=== PATIENT | female | born 2000 | race Caucasian/White ===

== ENCOUNTER 2022-02-07 18:08 | Outpatient (REF) | payer MEDICAID, SELFPAY ==
[2022-02-08 15:35] LABS: Chlamydia Result Negative (Negative); GC Result Negative (Negative)
== END 2022-02-07 18:09 | disposition home or self-care (01) ==
LOC: LBN 18:08
PROVIDERS: Visit Provider Nurse Practitioner Women's Health
DX: Z32.01 Encounter for pregnancy test, result positive (principal)
CPT/HCPCS: 87491; 87591

== ENCOUNTER 2022-03-14 16:06 | Outpatient (REF) | payer MEDICAID, SELFPAY ==
--- NOTE | 2022-03-14 14:00 | PAPFT_PTH ---
PATIENT: Luis Redd LOC: [facility] U#:[id number] AGE/SX: 22/F ROOM: RE03/14/[address]: Elsy Islas CNM : 2000 BED: DIS: 03/14/2022 SPEC #: [id number] RECD: 03/14/22 17:47 STATUS: CUONG RELita #: [id number] AFTAB: 03/14/22 14:[address]: Elsy Islas DEPT: [facility] Cytology RECD BY: Lissette Pascual Tissues: 1 - CX/ENDOCX FOR PAP SMEARS Procedures: PAP THIN PREP/UVM Screening Comments: [id number] (CHLAMYDIA/GC)
[2022-03-14 17:39] LABS: *AMPHETAMINES SCREEN URINE Negative (Negative); *BARBITURATES SCREEN URINE Negative (Negative); *BENZODIAZEPINES SCREEN URINE Negative (Negative); Cannabinoids THC Negative (Negative); Cocaine Screen,Urine Negative (Negative); METHADONE URINE SCREEN Negative (Negative); OPIATES URINE SCREEN Negative (Negative); Tricyclic Antidepressants Negative (Negative)
[2022-03-15 14:24] LABS: Chlamydia Result Negative (Negative); GC Result Negative (Negative)
[2022-03-19 14:06] LABS: Buprenorphine Negative ng/mL (Cutoff: 5.0); Norbuprenorphine Negative ng/mL (Cutoff: 2.5)
== END 2022-03-14 16:07 | disposition home or self-care (01) ==
LOC: LBN 16:06
PROVIDERS: Visit Provider Advanced Practice Midwife
DX: Z34.91 Encounter for supervision of normal pregnancy, unspecified, first trimester (principal); Z11.3 Encounter for screening for infections with a predominantly sexual mode of transmission; Z3A.11 11 weeks gestation of pregnancy; Z12.4 Encounter for screening for malignant neoplasm of cervix
CPT/HCPCS: 80307; 80348; 87491; 87591; 88142; 87480; 87510; 87660

== ENCOUNTER 2022-03-24 02:12 | Outpatient (CLI) | payer MEDICAID, SELFPAY ==
[2022-03-24 16:55] LABS: Abs Immature Grans 0.04 10^3/uL (0.0-0.06); Absolute Basophil Count 0.04 10^3/uL (0.0-0.2); Absolute Eosinophil Count 0.11 10^3/uL (0.0-0.7); Absolute Lymphocyte Count 1.71 10^3/uL (1.2-3.4); Absolute Monocyte Count 0.55 10^3/uL (0.1-0.8); Absolute Neutrophil Count 7.81 10^3/uL (1.2-6.7); Basophils % 0.4; Eosinophils % 1.1; HCT 36.2 % (36.0-46.0); HGB 12.7 g/dL (11.2-15.7); Immature Grans % 0.4; Lymphocytes % 16.7; MCH 29.5 pg (27.0-33.0); MCHC 35.1 % (32.0-36.0); MCV 84 fL (80-95); Monocytes % 5.4; Platelet Count 322 10^3/uL (130-400); RDW 12.5 % (11.7-14.6); RDW-SD 37.6 fL; WBC 10.26 10^3/uL (4.4-10.8)
[2022-03-26 14:03] LABS: HIV-1/2 Ag & Ab Screen Negative (Negative)
[2022-03-28 09:58] LABS: Hepatitis B Surface Ag Negative (Negative)
[2022-03-28 10:07] LABS: Hepatitis C Ab w Rflx HCV PCR Negative (Negative)
[2022-03-28 11:01] LABS: Varicella IgG Antibody Positive (See Note)
[2022-03-28 11:13] LABS: Rubella IgG Ab (UVM) Positive (See Note)
[2022-03-30 14:37] LABS: Syphilis IgG w/Reflex Nonreactive (Nonreactive)
== END 2022-03-24 02:13 | disposition home or self-care (01) ==
LOC: LBO 02:12
PROVIDERS: Visit Provider Advanced Practice Midwife
DX: Z34.91 Encounter for supervision of normal pregnancy, unspecified, first trimester
CPT/HCPCS: 36415; 86787; 86803; 86850; 86900; 86901; 87340; 87389; 85025; 86762; 86780; 87086

== ENCOUNTER 2022-04-28 02:08 | Outpatient (CLI) | payer MEDICAID, SELFPAY ==
--- NOTE | 2022-04-28 07:30 | DI.US_ITS ---
Exam(s) US OB 2-3 TRIMESTER W MOD EXAM: US OB 2-3 TRIMESTER W MOD CLINICAL HISTORY: 18 wk anatomy survey,z34.90. TECHNIQUE: Transabdominal obstetrical ultrasound performed. COMPARISON: US POCUS EXAM from 02/10/2022 FINDINGS: Number of fetuses: One. position: Vertex. Placental grade: 1 Placental location: Anterior no evidence of previa. BIOMETRIC DATA: BPD: 43mm = 19+ 0 weeks HC: 154mm = 18+ 2 weeks AC: 130mm = 18+ 4 weeks FL: 28mm = 18+ 5 weeks Cisterna Magna: 2 mm Cerebellum: 1.7 cm EFW: 249 grms 74% Composite Age: 18.5 weeks EDC by US: 24 September 2022 Heart Rate: 150BPM Amniotic fluid : Amount of fluid is within normal limits. ANATOMICAL SURVEY: Four-chambered heart: Unremarkable. LVOT: Unremarkable. RVOT: Unremarkable. Left-sided stomach: Unremarkable. urinary bladder: Unremarkable. Bilateral kidneys: Unremarkable. Three-vessel cord: Unremarkable. Cord insertion: Unremarkable. Posterior fossa:Unremarkable. ventricles: Unremarkable. nose: Not well seen lips: Suboptimally visualized. palate: Suboptimally visualized. spine: Unremarkable. Two arms and two legs: Unremarkable. IMPRESSION: 1. size and weight are within the expected range. 2. Normal anatomic survey. nose lips and palate suboptimally visualized. The patient is scheduled to return 09 May 2022 for further imaging. DATA REPOSITORY:
== END 2022-04-28 02:28 ==
LOC: DI 02:08
PROVIDERS: Visit Provider Advanced Practice Midwife
DX: Z34.92 Encounter for supervision of normal pregnancy, unspecified, second trimester (principal)
CPT/HCPCS: 76805

== ENCOUNTER 2022-05-09 00:20 | Outpatient (CLI) | payer MEDICAID, SELFPAY ==
--- NOTE | 2022-05-09 07:00 | DI.US_ITS ---
Exam(s) US OB F/U FACIAL/LVOT/RVOT EXAM: US OB F/U FACIAL/LVOT/RVOT CLINICAL HISTORY: F/U NOSE, LIPS, PALATE. COMPARISON: No exams were available for comparison TECHNIQUE: Transabdominal obstetrical ultrasound performed. FINDINGS: Sonographic images demonstrate a single intrauterine gestation in variable position. heart rate motion is Dopplered at: 144 bpm. nose/lips and palate: Unremarkable. Placenta: Anterior. IMPRESSION: face well visualized on today's exam. No abnormalities identified. DATA REPOSITORY:
== END 2022-05-09 00:40 ==
LOC: DI 00:20
PROVIDERS: Visit Provider Advanced Practice Midwife
DX: Z34.92 Encounter for supervision of normal pregnancy, unspecified, second trimester (principal)
CPT/HCPCS: 76815

== ENCOUNTER 2022-06-03 00:09 | Outpatient (CLI) | payer MEDICAID, SELFPAY ==
--- NOTE | 2022-06-03 13:35 | DI.US_ITS ---
APPROVED REPORT EXAM: Comprehensive 2D, Doppler, and color-flow Echocardiogram Patient Location: Out-Patient Locomotive Firer: Aria Hawkins RDCS (AE) Indications: Family h/o Murmur, Murmur 23 Week Other Information Study Quality: Adequate Conclusion Normal left ventricular wall thickness and chamber size. Estimated ejection fraction is 60 to 65%. Wall motion is normal Normal right ventricular size and systolic function Both atria are normal in size There is no structural or hemodynamically significant valvular disease Estimated right ventricular systolic pressure is 16 mmHg Wall motion Left Ventricle The left ventricle is normal size. The left ventricular systolic function is normal. The left ventric ular ejection fraction is within the normal range. There is normal left ventricular wall thickness. T here is normal LV segmental wall motion. There is no ventricular septal defect visualized. LVEF is 60 -65%. Right Ventricle Right ventricle is grossly normal in size. Right ventricular systolic function is grossly normal. Th e RVSP is 15.7 mmHg. Atria The left atrium size is normal. The right atrium size is normal. The interatrial septum is intact wit h no evidence for an atrial septal defect. Aortic Valve The aortic valve is normal in structure. Aortic valve is trileaflet. There is no aortic valvular sten osis. No aortic regurgitation is present. Mitral Valve The mitral valve is normal in structure. No evidence of mitral valve stenosis. Trace mitral regurgita tion. Tricuspid Valve The tricuspid valve is normal in structure. There is no tricuspid valve stenosis. Trace to mild tricu spid regurgitation. Pulmonic Valve The pulmonary valve is normal in structure. There is no pulmonic valvular stenosis. There is no pulmo joseph valvular regurgitation. Great Vessels The aortic root is normal in size. The ascending aorta is normal in size. Aortic arch is normal in ca liber. IVC is normal in size and collapses >50% with inspiration. Pericardium There is no pericardial effusion. 2D Dimensions IVSD d PLAX 0.61 cm F: 0.6-1.0 LV Vol A2C d MOD 67.0 mL LVPW d PLAX 0.68 cm F: 0.6 - 1.0 LV Vol A4C d MOD 91.0 mL LVID d PLAX 4.68 cm F: 3.8 - 5.2 LA vol/ BSA A2C s A-L 16.5 mL/m2 LVDs 3.00 cm F: 2.2 - 3.5 LA vol/ BSA A4C s A-L 24.6 mL/m2 Ao Root d 2.39 cm F: 2.7 - 3.3 LA Vol/ BSA Biplane s A-L 22.1 mL/m2 RA Area A4C 11.28 cm2 LA Area A4C s MOD 16.11 cm2 RA Vol/ BSA A4C s A-L 14.4 mL/m2 LA Area A2C s MOD 12.02 cm2 Ao Asc Diam d 2.42 cm F: 2.3 - 3.1 LV EF A4C MOD 59.9 % LV EF Teichholz 65.3 % LV EF A2C MOD 66.0 % LVEF (Shah's) 60.12 % F: 54 - 74 LV EF Biplane MOD 60.1 % LV Volume 61.37 mL F: 46 - 106 SV 47.24 mL LV Volume Index 34.47 mL/m2 F: 29 - 61 SV Index 26.56 mL/m2 LV Vol Biplane MOD 78.6 mL FS 35.75 % M-Mode TAPSE 2.75 cm (M/F) >1.7 LV Diastology MV E' medial 0.115 (>0.07 m/s) E/A Ratio 1.8 LV E/e MED 7.70 (<14) MV E Vmax 0.89 (0.4-1.3 m/s) MV E' lateral 0.189 (>0.1 m/s) MV A Vmax 0.50 (0.4-1.3 m/s) LV E/e LAT 4.65 (<14) MV E/A Ratio 1.68 MV E/E' medial 7.74 MV E/E' lateral 4.70 Aortic Valve LVOT Area 3.12 cm2 AoV Area Vmax 2.86 cm2 LVOT Vmax 1.22 m/s AoV Area/ BSA (Vmax) 1.61 cm2/m2 LVOT Mean Geremias. 0.86 m/s ELIDIA Mean Geremias. 3.00 cm2 LVOT Peak Grad 5.9 mmHg ELIDIA Mean Geremias. Index 1.69 cm2/m2 LVOT Mean Grad 3.4 mmHg LVOT VTI 0.267 m LVOT Diam s 1.95 cm AoV Vmax 1.33 m/s Velocity Ratio 0.92 AoV Mean Geremias. 0.89 m/s AoV Peak Grad 7.1 mmHg LVOT SV 83.14 mL AoV Mean Grad 3.5 mmHg AoV VTI 0.237 m AoV Area VTI 3.50 cm2 AoV Area/ BSA (VTI) 1.97 cm/m2 Mitral Valve MV DT 164 (160-240 msec) MV PHT 48 msec MV Area PHT 4.62 cm2 MV VTI 0.335 m MV Area VTI 2.48 (4.0-6.0 cm2) Pulmonary Valve PV Vmax 1.12 (0.5-1.5 m/s) RVOT Peak Gr. 3.38 mmHg PV Peak Grad 5.0 mmHg RVOT Mean Gr. 1.70 mmHg PV Mean Grad 2.7 mmHg RVOT VTI 0.202 m PV VTI 0.235 m RVOT Vmax 0.92 m/s Tricuspid Valve TR Peak Grad 12.6 mmHg TR Vmax 1.78 m/s RA Pressure 3.00 mmHg RVSP (TR) 15.7 mmHg
== END 2022-06-03 00:29 ==
LOC: DI 00:09
PROVIDERS: Visit Provider Advanced Practice Midwife
DX: R01.1 Cardiac murmur, unspecified (principal); Z82.49 Family history of ischemic heart disease and other diseases of the circulatory system
CPT/HCPCS: 93306

== ENCOUNTER 2022-07-04 01:51 | Outpatient (CLI) | payer MEDICAID, SELFPAY ==
[2022-07-04 15:22] LABS: MCH 30.2 pg (27.0-33.0); MCHC 34.3 % (32.0-36.0); MCV 88 fL (80-95); Platelet Count 282 10^3/uL (130-400); RBC 3.98 10^6/uL (3.93-5.22); RDW 13.2 % (11.7-14.6); RDW-SD 43.1 fL; WBC 8.92 10^3/uL (4.4-10.8)
[2022-07-04 15:30] LABS: Glucose,1 Hr (Glucola) 125 mg/dL (80-140)
== END 2022-07-04 01:52 | disposition home or self-care (01) ==
LOC: LBO 01:52
PROVIDERS: Visit Provider Advanced Practice Midwife
DX: Z34.90 Encounter for supervision of normal pregnancy, unspecified, unspecified trimester (principal)
CPT/HCPCS: 36415; 82950; 85027; 86850; 90384

== ENCOUNTER 2022-08-12 12:41 | Outpatient (CLI) | payer MEDICAID, SELFPAY ==
--- NOTE | 2022-08-12 12:30 | RT.EKG_ITS ---
APPROVED REPORT Exam: Resting ECG Reason for Exam: cardiac evaluation of murmur in woman Patient Location: O HR:87 bpm ECG Measurements Heart Rate 87 AXIS OK 143 P 34 QRSd 174 QRS 16 QT 352 T 28 QTc 424 Conclusion Sinus rhythm...normal P axis, V-rate 50- 99 Normal Electrocardiogram
== END 2022-08-12 12:42 | disposition home or self-care (01) ==
LOC: DI.CARD 12:42
PROVIDERS: Visit Provider Internal Medicine Cardiovascular Disease
DX: R01.1 Cardiac murmur, unspecified (principal)
CPT/HCPCS: 93010

== ENCOUNTER 2022-09-02 00:28 | Outpatient (CLI) | payer MEDICAID, SELFPAY ==
--- NOTE | 2022-09-02 08:00 | DI.US_ITS ---
Exam(s) US OB LIZ WEIGHT EXAM: US OB LIZ WEIGHT CLINICAL HISTORY: breech presentation, fluid and weight,O32.1xxO. TECHNIQUE: Transabdominal obstetrical ultrasound performed. COMPARISON: US US ECHOCARDIOGRAM from 06/03/2022 FINDINGS: Number of fetuses: 1 position: CEPHALIC Placental location: There is a grade 2 anterior placenta. No evidence of previa. BIOMETRIC DATA: BPD: 8.85cm, 35weeks 5days HC: 32.27cm, 36weeks 3days AC: 35.08cm, 39weeks FL: 7.14cm, 36weeks 4days EFW: 3,299.44g, 7lb 5.26oz, 87.7% Composite Age: 37weeks MUSTAPHA: 09/23/2022 Heart Rate: 135bpm Amniotic fluid index: 11.75cm. Visually, amount of fluid is within normal limits. IMPRESSION: 1. Single live intrauterine gestation as above. 2. Estimated weight is 3299gms. This is the 88th percentile. 3. Amniotic fluid index is 11.8 cm. Visually within normal limits. DATA REPOSITORY:
== END 2022-09-02 00:48 ==
LOC: DI 00:28
PROVIDERS: Visit Provider Advanced Practice Midwife
DX: O32.1XX1 Maternal care for breech presentation, fetus 1 (principal)
CPT/HCPCS: 76816

== ENCOUNTER 2022-09-02 15:50 | Outpatient (REF) | payer MEDICAID, SELFPAY ==
[2022-09-02 17:15] LABS: *AMPHETAMINES SCREEN URINE Negative (Negative); *BARBITURATES SCREEN URINE Negative (Negative); *BENZODIAZEPINES SCREEN URINE Negative (Negative); Cannabinoids THC Negative (Negative); Cocaine Screen,Urine Negative (Negative); METHADONE URINE SCREEN Negative (Negative); OPIATES URINE SCREEN Negative (Negative)
[2022-09-02 17:16] LABS: Tricyclic Antidepressants Negative (Negative)
[2022-09-08 22:27] LABS: Buprenorphine Negative ng/mL (Cutoff: 5.0)
== END 2022-09-02 15:51 | disposition home or self-care (01) ==
LOC: LBN 15:50
PROVIDERS: Visit Provider Advanced Practice Midwife
DX: Z34.93 Encounter for supervision of normal pregnancy, unspecified, third trimester (principal); Z36.85 Encounter for antenatal screening for Streptococcus B; Z3A.36 36 weeks gestation of pregnancy
CPT/HCPCS: 80307; 80348; 87081

== ENCOUNTER 2022-09-21 02:39 | Inpatient (IN) | payer MEDICAID, SELFPAY ==
[2022-09-21] VITALS (37 sets, daily range): BP systolic 108–140; BP diastolic 53–90; PULSE 56–115; RESP 16–18; TEMP 36–36.9; O2SAT 93–100; BMI 33.6
--- NOTE | 2022-09-21 02:41 | W.PM.OBHPL1 ---
Date of service: 09/21/22 Time of Service: 02:41 Assessment and Plan Assessment and plan (1) PROM (premature rupture of membranes): Status: Acute Assessment and plan: A: 22 yo G1 @ 39 wks, PROM at 0030, Latent phase labor, martin score 5 Category 1 tracing, low risk for PPH and SD GBS+, Rh neg, received RhoGam at 28 wks P: Admit to BC, T&S and CBC Begin GBS prophylaxis with PCN Expectant management at this time Induction of labor via cervical ripening or pitocin if indicated OB-HPI Labor/Delivery History of Present Illness Reason for Visit: Clinical Acct Chief Complaint: Suspected Rupture of Membranes , Associated Signs and Symptoms of Suspected ROM: large gush of water at 0030, trickling since then, gross SROM blood tinged observed upon arrival in unit. MUSTAPHA Calculator Estimated Delivery Date Method Current WG Current Estimate 09/28/22 Ultrasound #1 39w 0d Other Estimates 08/31/22 LMP (Uncertain) 43w 0d History of Present Expected Delivery Route/Plan - CNM FOB/ - Domingo Redd (first child) Doesn't want to know gender Using flow tanner to prepare for childbirth. GBS POSITIVE - PCN prophylaxis recommended Specific Issues/Plan 1. Declines flu & COVID vaccines, last COVID infection was summer 2021 2. Declines cfDNA, desires CF screening 3. Cystic acne, ref to [facility] Derm[facility]ology/ appointment in September 16 4. Rh neg, Received rhoGam @ 28 wks 5. Referral to Cardiology due to heart murmur reported at initial OB visit and family history 6a. Dr. Diaz recommends echo; f/up appt after echo on 05/2022- [facility] echo & EKG 6. Received TDAP 08/12/22 7. US 09/02/22 87% with LIZ 11.75 Cephalic Assessment: History Reviewed & Current Review of Systems Narrative: ROS noncontributory other then HPI PFSH All Active Problems (Updated 09/21/22 @ 02:55 by Elsy Islas) PROM (premature rupture of membranes) (Acute) Heart murmur (Acute) Rh negative state in antepartum period (Acute) Cystic acne (Acute) (Acute) Medical History Family history of heart murmur No pertinent past medical history Positive test Surgical History No pertinent past surgical history Family History Sister Heart murmur Maternal Grandmother Arrhythmia pacemaker Paternal Grandfather Heart disease stints placed Paternal Grandmother Blood clot in vein Mother Hypertension Father Hyperlipidemia Social History Smoking/Tobacco Use Status: Never Second Hand Exposure: No Smoking risk assessment performed?: Yes Alcohol Intake: never Drug use: Never Female Reproductive History Menstrual control method: none History History 1 Para 0 Hx # Term Pregnancies 0 Multiple births 0 Hx # Pregnancies 0 Ectopic pregnancies 0 AB induced 0 Hx Number of Living Children 0 AB spontaneous 0 Meds Allergies and Home Medications Allergies Allergy/AdvReac Type Severity Reaction Status Date / Time NKA Allergy Uncoded 09/19/22 15:21 Home Medications Medication Instructions Recorded Confirmed Type prenat.vits,fiona,mec-aguo-harqw 1 tab PO DAILY 02/07/22 09/21/22 History Exam Physical Exam Vital signs: Temp Pulse Resp BP 98.3 F 100 H 16 123/78 09/21/22 01:50 09/21/22 01:50 09/21/22 01:28 09/21/22 01:50 Vital Signs Reviewed: Yes Constitutional Constitutional: no acute distress, average body habitus and cooperative Detailed Labor and Delivery Exam Dilation: 1.5 Effacement (%): 70 station: -3 Cervix position: posterior Consistency: soft MARTIN Score(Cervical Ripeness Score): 5 Amniotic Membrane Status: Ruptured Rupture Method: Spontaneous Amniotic Fluid: Clear and Crump Tinged Pooling: Positive Nitrazine: Positive Ferning: Present Contraction Frequency(min): rare Fetus A Heart Rate Baseline: 135 Monitor Accelerations: 15 X 15 Monitor Decelerations: None Variability: Moderate (6-25 BPM) Categories: Category I Est. Weight: 8 lb 7.805 oz Est. Weight: 3850 gms HEENT Exam HEENT Exam: Normal Neck Exam Neck Exam: Normal Chest/Brest/Axilla Exam Chest Exam: Normal Breast Exam Breast Exam: Not Done Respiratory Exam Respiratory Exam: Normal Cardiovascular Exam Cardiovascular Exam: Normal Abdominal Exam Abdominal Exam: Normal Rectal Exam Rectal Exam: Normal Exam Exam: Normal Extremities Exam Extremities Exam: Normal Back/Spine/Pelvis Exam Back Exam: Normal Pelvis Adequate: Yes Skin Exam Skin Exam: Normal Neurological Exam Neurological Exam: Normal Psychiatric Exam Psychiatric Exam: Normal Results Results Group Beta Strep: Positive Blood Type: A- Rubella Status: Immune Varicella Immunity: Immune Risk Assessment Risk for Shoulder Dystocia Historical/Initial OB: NEGATIVE FOR: Pelvic Abnormality, Pre- BMI>30, Previous Shoulder Dystocia or Previous Macrosomia 36 Weeks: NEGATIVE FOR: Current Gestational DM, EFW>4500gms or Maternal Weight Gain>40lbs Increased Risk?: No Delivery Plan @ 36wks: VAL ADAMS Risk for Pre-Eclampsia Date Initiated/Initials: 03/14/22, JK Yes, if one or more: NEGATIVE FOR: Hx Pre-E/Gest HTN, Chronic HTN, Multiple Gestation, Pre-gestational DM, Renal Disease, Systemic Lupus or APA Syndrome Yes, if 2 or more: POSITIVE FOR: Nulliparity; NEGATIVE FOR: Age>= 35 yrs, >10yr btwn pregnancies, BMI>30, ethinicty, Mother/Sister w/ Pre-E or Previous IUGR Risk for Post- Hemorrhage Initial: NEGATIVE FOR: Multiple Gestation, Previous PPH, Known Clotting Deficiency, Grand Multiparity or Anticoagulation 36 Weeks: NEGATIVE FOR: Anemia, hgb<10, Low platelets(thrombocytopenia), Gestational HTN or Pre-E, Polyhydraminios or EFW>4500gms At Risk?: No Counseled re: Active Management: Yes Risks Reviewed Risks Reviewed Upon Admission: Yes
[2022-09-21] MEDS: Penicillin G POT. 5,000,000 UNITS in Normal Saline 100 ML 200 UNITS IVPB (02:57)
[2022-09-21 06:37] LABS: HCT 37.7 % (36.0-46.0); HGB 13.1 g/dL (11.2-15.7); MCH 30.9 pg (27.0-33.0); MCHC 34.7 % (32.0-36.0); MCV 89 fL (80-95); MPV 9.5 fL (8.0-11.0); Platelet Count 236 10^3/uL (130-400); RBC 4.24 10^6/uL (3.93-5.22); RDW 13.3 % (11.7-14.6); RDW-SD 43.6 fL; WBC 9.77 10^3/uL (4.4-10.8)
[2022-09-21] MEDS: Penicillin G POT. 3,000,000 UNITS in Normal Saline 50 ML 100 UNITS IVPB ×3 (06:42→15:35)
--- NOTE | 2022-09-21 07:05 | W.OBNST ---
Date of service: 09/21/22 Time of Service: 02:30 NST Evaluation Reason for NST Reasons for Nonstress Test: OTHER, SEE COMMENT Reason for NST Other: Possible SROM Gestational Age Gestational Age in Weeks and Days: 39 Weeks and 0Days Test and Monitor Explained Test/Monitor Explained: Test Explained, Monitor Explained and Patient Verbalized Understanding Vital Signs Blood Pressure: 123/78 Pulse: 100 Temperature: 98.3 F NST Information Date on Monitor: 09/21/22 Time on Monitor: 01:48 Date off Monitor: 09/21/22 Time off Monitor: 02:39 Total Time on Monitor: 51 NST Interventions: PO Hydration NST Evaluation Patient States Movement: Present FHR Baseline: 135 Variability: Moderate 6-25 bpm Accelerations: 15x15 Decelerations: None NST Results: Reactive Note Ultrasound Done: N/A. NST Note Note: admit for PROM NST Reviewed and Verified by: Elsy Islas
[2022-09-21] MEDS: miSOPROStol 25 MCG TAB 50 MCG PO (09:15)
--- NOTE | 2022-09-21 09:33 | W.PM.OBNL1 ---
Date of service: 09/21/22 Time of Service: 09:00 Informed Consent Informed Consent: Induction of Labor and Risk,Benefits,Alternatives Discussed Pelvic Exam Comments: VE deferred Contractions Monitor Mode: External Contraction Frequency(min): irregular Intensity: Mild Fetus A Monitor: External (US) Heart Rate Baseline: 128 Variability: Moderate (6-25 BPM) Categories: Category I Assessment and Plan Assessment and plan (1) PROM (premature rupture of membranes): Status: Acute Assessment and plan: 1. discussed expectant management vs induction of labor with misoprostol and or pitocin. Luis is prepared to move forward with misoprostol SL. Risks, benefits, procedures associated with reviewed. 2. Will reassess at 1300 or prn. KH Objective Temp Pulse Resp BP Pulse Ox 98.5 F 85 18 127/71 97 09/21/22 09:16 09/21/22 09:16 09/21/22 09:16 09/21/22 09:16 09/21/22 07:18 Laboratory Results WBC 9.77 10^3/uL (4.4-10.8) 09/21/22 06:30 RBC 4.24 10^6/uL (3.93-5.22) 09/21/22 06:30 Hgb 13.1 g/dL (11.2-15.7) 09/21/22 06:30 Hct 37.7 % (36.0-46.0) 09/21/22 06:30 MCV 89 fL (80-95) 09/21/22 06:30 MCH 30.9 pg (27.0-33.0) 09/21/22 06:30 MCHC 34.7 % (32.0-36.0) 09/21/22 06:30 RDW 13.3 % (11.7-14.6) 09/21/22 06:30 Plt Count 236 10^3/uL (130-400) 09/21/22 06:30 MPV 9.5 fL (8.0-11.0) 09/21/22 06:30 Patient ABO/Rh A Negative 09/21/22 06:30 Antibody Screen POSITIVE 09/21/22 06:30 Antibody Identification Anti-D 09/21/22 06:30 Subjective Interval history since last seen: Luis is feeling well. No signs of labor at this time and she is feeling prepared to move forward with cervical ripening. KH Results Hemoglobin/Hematocrit: Hgb 13.1 g/dL (11.2-15.7) 09/21/22 06:30 Hct 37.7 % (36.0-46.0) 09/21/22 06:30
--- NOTE | 2022-09-21 13:30 | W.PM.OBNL1 ---
Date of service: 09/21/22 Time of Service: 13:08 Informed Consent Informed Consent: Induction of Labor and Risk,Benefits,Alternatives Discussed Pelvic Exam Dilation: 6 Effacement (%): 80 station: 0 Contractions Monitor Mode: Palpation Contraction Frequency(min): 3 Contraction Duration(sec): 60 Intensity: Moderate/Strong Fetus A Monitor: External (US) Heart Rate Baseline: 120 Variability: Moderate (6-25 BPM) Categories: Category I Accelerations: 15 X 15 Decelerations: None Assessment and Plan Assessment and plan (1) PROM (premature rupture of membranes): Status: Acute Assessment and plan: 1. Labor progressing normally status post one dose of 50 mcg Misoprostol PO 2. Continue present management. 3. Receiving IV PCN for GBS +, has had 3 doses 4. Expect NVD. KH Objective Temp Pulse Resp BP Pulse Ox 98.0 F 82 18 126/77 97 09/21/22 13:01 09/21/22 13:01 09/21/22 13:01 09/21/22 13:01 09/21/22 07:18 Laboratory Results WBC 9.77 10^3/uL (4.4-10.8) 09/21/22 06:30 RBC 4.24 10^6/uL (3.93-5.22) 09/21/22 06:30 Hgb 13.1 g/dL (11.2-15.7) 09/21/22 06:30 Hct 37.7 % (36.0-46.0) 09/21/22 06:30 MCV 89 fL (80-95) 09/21/22 06:30 MCH 30.9 pg (27.0-33.0) 09/21/22 06:30 MCHC 34.7 % (32.0-36.0) 09/21/22 06:30 RDW 13.3 % (11.7-14.6) 09/21/22 06:30 Plt Count 236 10^3/uL (130-400) 09/21/22 06:30 MPV 9.5 fL (8.0-11.0) 09/21/22 06:30 Patient ABO/Rh A Negative 09/21/22 06:30 Antibody Screen POSITIVE 09/21/22 06:30 Antibody Identification Anti-D 09/21/22 06:30 Subjective Interval history since last seen: Luis is feeling strong contractions and doing well with them. KH Results Hemoglobin/Hematocrit: Hgb 13.1 g/dL (11.2-15.7) 09/21/22 06:30 Hct 37.7 % (36.0-46.0) 09/21/22 06:30
--- NOTE | 2022-09-21 16:39 | OBCE_ITS ---
Date of service: 09/21/22 Time of Service: 16:40 Assessment and Plan Assessment and plan (1) Fourth degree laceration of perineum, delivered, current hospitalization: Status: Acute Assessment and plan: Vaginal packing placed until able to go to the OR. Patient received 2 g of Ancef. We will proceed to the operating room for exam under anesthesia and repair of the extension of vaginal laceration. History of Present Illness History of Present Illness Chief Complaint: Vaginal laceration Narrative: Kindly asked to see in consultation this 22-year-old female primigravida immediately with delivery of a viable female . She had expulsive forces at delivery and a laceration. On examination, she has moderate amount of bleeding and is hemodynamically stable. On examination she has a significant fourth degree laceration with a vaginal sulcus tear. She has no analgesia currently and would require analgesia for appropriate exposure and repair of her laceration. Risk-benefit and alternatives were discussed. Full informed consent was obtained. Consults Consult date: 09/21/22 Requesting physician: Dai Connolly Review of Systems Narrative: Immediately with vaginal bleeding and vaginal laceration All systems reviewed & are unremarkable except as noted in HPI and below PFSH All Active Problems (Updated 09/21/22 @ 16:46 by Stephanie Frye DO) Fourth degree laceration of perineum, delivered, current hospitalization (Acute) to the OR for repair Group B Streptococcus carrier, +RV culture, currently (Acute) PROM (premature rupture of membranes) (Acute) Heart murmur (Acute) Rh negative state in antepartum period (Acute) Cystic acne (Acute) (Acute) Medical History Family history of heart murmur No pertinent past medical history Positive test Surgical History No pertinent past surgical history Family History Sister Heart murmur Maternal Grandmother Arrhythmia pacemaker Paternal Grandfather Heart disease stints placed Paternal Grandmother Blood clot in vein Mother Hypertension Father Hyperlipidemia Social History Smoking/Tobacco Use Status: Never Second Hand Exposure: No Smoking risk assessment performed?: Yes Alcohol Intake: never Drug use: Never Do you feel safe at home: Yes Do you feel safe in your relationship?: Yes Female Reproductive History Menstrual control method: none History History 1 Para 0 Hx # Term Pregnancies 0 Multiple births 0 Hx # Pregnancies 0 Ectopic pregnancies 0 AB induced 0 Hx Number of Living Children 0 AB spontaneous 0 Exam Const General: cooperative, healthy appearing, comfortable and no acute distress Nutritional Appearance: average body habitus Resp Effort & Inspection: normal respiratory effort and no cough Cardio Rate: regular rate Rhythm: regular rhythm Other: Patient has a vaginal laceration which appears to be 1/4 degree and extension i nto the right sulcus. She will be taken to the operating suite for repair due to comfort levels, and visualization. Full informed consent was obtained Results Last Vital Signs Temp 97.7 F 09/21/22 15:45 Pulse 110 H 09/21/22 16:29 Resp 18 09/21/22 13:01 BP 123/68 09/21/22 16:29 Pulse Ox 100 09/21/22 16:08 Labs 09/21/22 06:30 Labs: Laboratory Results - last 24 hr 09/21/22 09/21/22 06:30 06:30 WBC 9.77 RBC 4.24 Hgb 13.1 Hct 37.7 MCV 89 MCH 30.9 MCHC 34.7 RDW 13.3 Plt Count 236 MPV 9.5 Patient ABO/Rh A Negative Antibody Screen POSITIVE Antibody Identification Anti-D
--- NOTE | 2022-09-21 16:46 | W.ANESPRE ---
General Info Date of Service Date Performed: 09/21/22 Height: 5 ft 5 in Weight: 91.626 kg Body Mass Index (BMI): 33.6 Meds Allergies and Home Medications Allergies Allergy/AdvReac Type Severity Reaction Status Date / Time NKA Allergy Uncoded 09/19/22 15:21 Home Medication Medication Instructions Recorded prenat.vits,fiona,sbu-[id number]-umpdv 1 tab PO DAILY 02/07/22 Current Visit Medications: Current Medications Generic Name Dose Route Start Last Admin Trade Name Freq PRN Reason Stop Dose Admin Fentanyl/Ropivacaine 200 ml 09/21/22 16:00 Fentanyl/Ropivacaine 2 Mcg/Ml And 0.1% 200 Ml Cadd Cassette EP DIRECTED FRANK Sodium Chloride 500 mls @ 0 mls/hr 09/21/22 02:39 Saline 500ml Bag IV PRN PRN As Directed Penicillin G Potassium 3,000, 50 mls @ 100 mls/hr 09/21/22 07:00 09/21/22 15:35 000 units/ Sodium Chloride IVPB 100 mls/hr Q4H FRANK Administration IV Miscellaneous Supplies 1 each 09/21/22 02:45 Iv Access IV DIRECTED FRANK Misoprostol 50 mcg 09/21/22 09:00 09/21/22 13:30 Misoprostol 25 Mcg Tab PO Not Given Q4H FRANK Sodium Chloride 0 ml 09/21/22 02:39 Normal Saline Flush 10 Ml Syr IVP PRN PRN PFSH Active Problems Active Problems: Problem Status Onset Code Group B Streptococcus carrier, +RV culture, currently O99.820 PROM (premature rupture of membranes) O42.90 Heart murmur R01.1 Rh negative state in antepartum period O26.899, Z67.91 Cystic acne L70.0 Z34.90 Medical History Medical History Family history of heart murmur No pertinent past medical history Positive test Surgical History Surgical History No pertinent past surgical history Tobacco Smoking/Tobacco Use Status: Never Second hand exposure: No Alcohol Alcohol Intake: never Substance Use Substance use: Never Prental History History 1 Para 0 Hx # Term Pregnancies 0 Multiple births 0 Hx # Pregnancies 0 Ectopic pregnancies 0 AB induced 0 Hx Number of Living Children 0 AB spontaneous 0 Vital Signs and Lab Results Vital Signs Most Recent Vital Signs in EMR: Most Recent Vital Signs Temp Pulse Resp BP Pulse Ox 36.5 C 91 H 18 133/76 100 09/21/22 15:45 09/21/22 16:45 09/21/22 13:01 09/21/22 16:45 09/21/22 16:45 Lab Results 09/21/22 06:30 Blood Type / Crossmatch: Patient ABO/Rh A Negative 09/21/22 Antibody Screen POSITIVE 09/21/22 Complete Blood Count: White Blood Count 9.77 10^3/uL (4.4-10.8) 09/21/22 06:30 Red Blood Count 4.24 10^6/uL (3.93-5.22) 09/21/22 06:30 Hemoglobin 13.1 g/dL (11.2-15.7) 09/21/22 06:30 Hematocrit 37.7 % (36.0-46.0) 09/21/22 06:30 Platelet Count 236 10^3/uL (130-400) 09/21/22 06:30 Complete Metabolic Panel: No Data to Display Liver Function Panel: No Data to Display Coagulation Panel: No Data to Display Cardiac Panel: No Data to Display Arterial Blood Gas: No Data to Display Venous Blood Gas: No Data to Display Pancreas Panel: No Data to Display Thyroid Panel: No Data to Display Infectious Disease: No Data to Display Blood Cultures: No Data to Display Toxicology Panel: Urine Amphetamines Screen Negative (Negative) 09/02/22 15:50 Urine Benzodiazepines Screen Negative (Negative) 09/02/22 15:50 Urine Barbiturates Screen Negative (Negative) 09/02/22 15:50 Urine Cocaine Screen Negative (Negative) 09/02/22 15:50 Urine Methadone Screen Negative (Negative) 09/02/22 15:50 Urine Opiates Screen Negative (Negative) 09/02/22 15:50 Ur Tricyclic Antidepressants Screen Negative (Negative) 09/02/22 15:50 Ur Tetrahydrocannabinol (THC) Scrn Negative (Negative) 09/02/22 15:50 Panel: No Data to Display Imaging and Studies Imaging and Studies Study information below may be from another EMR and interpreted by another provider. Please see original notes in EMR for more complete details. EKG Summary: 08/12/2022: Exam: Resting ECG Reason for Exam: cardiac evaluation of murmur in woman Patient Location: O HR:87 bpm ECG Measurements Heart Rate 87 AXIS AZ 143 P 34 QRSd 174 QRS 16 QT 352 T28 QTc 424 Conclusion Sinus rhythm...normal P axis, V-rate 50- 99 Normal Electrocardiogram Echocardiogram Summary: 06/03/2022: Conclusion Normal left ventricular wall thickness and chamber size. Estimated ejection fraction is 60 to 65%. Wall motion is normal Normal right ventricular size and systolic function Both atria are normal in size There is no structural or hemodynamically significant valvular disease Estimated right ventricular systolic pressure is 16 mmHg Anesthesia Assessment and Plan Anesthesia History Personal History: No History of Anesthesia Complications Family History: No Family History of Anesthesia Complications Exercise Tolerance Exercise Tolerance: Metabolic Equivalents>4 Pertinent Negatives Pertinent Negatives: No Major Cardiovascular Symptoms or Complaints and No Major Pulmonary Symptoms or Complaints Cardiac & Pulmonary Exam Cardiac Exam: Normal S1/S2 Heart Sounds Pulmonary Exam: Clear Bilateral Breath Sounds Implantable Cardiac Device Does patient have a Pacemaker or an ICD?: No Airway Exam Known Difficult Airway: No Mallampati Class: 3 Mouth Opening: Normal (> 3cm) Thyromental Distance: Greater than 3 cm Neck Range of Motion: Full ROM Neck Circumference: Normal Teeth Condition: Normal Dentition ASA Classification ASA Score: ASA 2 Emergency Case?: No NPO Status NPO Status: NPO Clears >2 hours, Solids >8 hours Status Status: Other (Recent delivery) Anesthesia Plan Resuscitation Status: Full Code Anesthesia Technique: Spinal Anesthesia Airway Planned: Natural Airway Monitors Used: Standard Monitors Preoperative Comments:: SAB with intrathecal narcotics, GA/ETT backup
--- NOTE | 2022-09-21 16:47 | W.OBDELIVERY ---
Date of service: 09/21/22 Time of Service: 16:47 OB Labor/ Delivery Information Baby A Delivery Delivery Method: Spontaneaous Presentation: Vertex Vertex Position: Left Occipital Anterior Cord Description-Baby A: 3 Vessels, Nuchal Cord (X 1 loose reduced prior to delivery of shoulders) and Clamped/Cut Amniotic Fluid: Clear Estimated Blood Loss: 500 Delivery Outcome: Liveborn Infant Complications: none Transferred: Remains with Mother (will remain with Father while Luis is in OR for repair of 4th degree laceration) Providers Nurse Sustainability Director: Dai Connolly Nurse: Zarina Brooks Nurse: Sarah Chaudhari Labor/Delivery Information Steroids Given: None Reason Steroids Not Administered: N/A Group Beta Strep: Positive Antibiotics Administered: Yes Rubella Status: Immune Blood Type: A- Varicella Immunity: Immune Medication in Delivery: none Maternal Complications: Other (4th degree laceration) Shoulder Dystocia: No Note: Luis presented with PROM in the early hours of 09/21/22 and rested overnight awaiting spontaneous labor. At 0800 on 09/21/22 she was not in labor and decision was made to give misoprostol 50 mcg to begin cervical ripening as her admission exam was 1 cm. She progressed nicely and had good pain management of labor until she was 6 cm and then tried shower and nitrous for pain relief. She began to feel like she needed to push but there was a cervical lip that reduced but returned and we attempted to push for 30 minutes without her ability to effectively push. She was still 9.5cm and requesting epidural for pain management when she was able to get out of bed to BR to void. When JOEY Murray presented to discuss options for management of pain, VE demonstrated 10/100/+2 and decision to push was made. FHR had been 100-120 throughout labor by doppler or EFM. She pushed with excellent effort and then approximately 200 cc of bright red blood was noted before baby was . She pushed 2 more contractions and pushed vigorously with her right leg extended and not flexed. [employer] Sales Representative felt perineum give with delivery of head. Nuchal cord X1 reduced and patient pushed again for shoulders and baby delivered quickly and was placed skin to skin. Cord was double clamped and cut by FOB at 3 minutes of life and large gush of red blood and placenta delivered with pushing effort. Total EBL at delivery was likely 1000-1500ml. [employer] Sales Representative assessed perineum and requested Dr. Frye to attend to confirm need to repair 4th degree laceration. Patient was taken to OR for repair. See Physician notes. Baby had of 6 and 9. Baby girl, Zamzam Redd. Weight will be on completed delivery report. KH Stages of Labor Onset of Labor Date: 09/21/22 Onset of Labor Time: 00:30 Complete Dilatation Date: 09/21/22 Complete Dilatation Time: 16:09 Labor - Stage 1 Duration: 15 hours and 39 minutes ROM Baby A: 09/21/22 ROM Baby A: 14:26 Infant Delivery Date-Baby A: 09/21/22 Infant Delivery Time-Baby A: 16:23 Labor Stage 2 Duration: 14 minutes Placenta Delivery Date-Baby A: 09/21/22 Placenta Delivery Time-Baby A: 16:27 Labor-Stage 3 Duration: 4 minutes Total Length of Labor-Baby A: 15 hours and 53 minutes Baby A Gestational Status: Term (39-41.6 wks) Gestational Age in Weeks/Days: 39 Weeks and 0 Days
[2022-09-21] MEDS: ceFAZolin 2 GM/50 ML BAG 100 GM (16:50)
--- NOTE | 2022-09-21 17:00 | NUR.NOTE ---
Per CNM, vinicio pad which was weighed with clot after delivery had amniotic fluid as well. 1590 ml was total for both blood and amniotic fluid volume. Nursing Note:
[2022-09-21] MEDS: Lactated Ringers 1,000 ML 100 ML IV ×2 (17:22→18:02)
--- NOTE | 2022-09-21 18:13 | POCSPONT_PTH ---
PATIENT: Luis Redd LOC: OBS U#:[id number] AGE/SX: 22/F ROOM: OBS.301 RE09/21/[address]: Elsy Islas CNM : 2000 BED: A DIS: 09/23/2022 SPEC #: [id number] RECD: 09/22/22 12:36 STATUS: CUONG REQ #: [id number] AFTAB: 09/21/22 18:[address]: Elsy Islas DEPT: Surgical Specimen RECD BY: Lissette Pascual Tissues: 1 - ,SPONTANEOUS Procedures: GROSS AND MICRO LEVEL 4 Comments: [id number]
--- NOTE | 2022-09-21 18:58 | W.PM.OP ---
Date of service: 09/21/22 Time of Service: 18:59 Operative Note Operative Note DATE OF PROCEDURE: 09/21/22 PRE-OP DIAGNOSIS: Vaginal laceration POST-OP DIAGNOSIS: same (With retained placental fragments) PROCEDURE: Exam under anesthesia, removal of retained placental fragments, repair of vaginal laceration SURGEON: Stephanie Frye CORNER BLOCK CUTTER: Karolyn Rodriguez ANESTHESIA TYPE: Spinal Refer to Anesthesia Record ESTIMATED BLOOD LOSS: 500 PATHOLOGY: other (Placental fragments) COMPLICATIONS: None Patient was transported to: floor Patient's condition: stable Indications: Significant vaginal laceration after spontaneous vaginal delivery Findings: 1. Retained placental fragments 2. Intact cervix with no laceration 3. Left vaginal sulcus laceration, bilateral labia majora laceration, third-degree perineal extension Procedure Description: After full informed consent was obtained, patient was taken the operating suite. She was initially placed side-lying for spinal anesthesia, however then needed to be placed in the seated position. Spinal anesthesia was administered, and the patient was returned to the dorsal supine position. Anesthesia was tested and found to be adequate. She was then placed in the modified dorsal lithotomy position after receiving 2 g of Ancef and pneumatic compression stockings for DVT prophylaxis. She was prepped and draped in the usual sterile fashion. Marsh catheter was inserted for continuous bladder drainage. On examination under anesthesia the uterus was needed noted to be slightly globular, and trailing membranes protruding through the cervix. These were teased out and manual curettage of the uterus performed. Uterus was then firm and 3 cm below the umbilicus. At this point speculum was inserted into the vaginal vault and the cervix visualized, and noted to be intact with no lacerations. On inspection of the vagina there was noted to be a left sulcus tear which extended deep into the ischial rectal fossa and approximately 2 cm distal to the cervical vaginal interface. There was also noted to be 1/3 degree sphincter laceration with no rectal involvement. Bilaterally, at the labia majora, there were avulsions which extended through the labia minora to the 3 and 9 o'clock position respectively bilaterally. After thorough inspection of the uterus, cervix, vagina, perineum, and rectum repair was undertaken. Initial attention was turned to the rectal sphincter which was reapproximated with 2-0 Vicryl in a simple interrupted fashion circumferentially at the posterior, superior, and inferior portions of the sphincter capsule. Next the deep left vaginal sulcus laceration which was repaired deep space first with interrupted sutures followed by vaginal mucosa with 3-0 Vicryl in a running locked fashion to the vaginal apex. Subsequent to this the right labial laceration was repaired with 3-0 Vicryl suture in a running fashion to the perineal body. The left labial laceration was then repaired in the same fashion. The remainder of the repair from the vaginal introitus to the brink of the anal verge was repaired in the usual, subcutaneous, followed by subcuticular stitch for complete reapproximation. All areas were again reinspected and noted to be hemostatic. Rectovaginal examination was then again performed to ensure intact rectovaginal septum, and appropriately reapproximated rectal sphincter. At this point, with hemostasis noted and appropriate physiologic and cosmetic result, the procedure was terminated. Patient was returned to the dorsal supine position and returned to the center with a Marsh catheter draining clear yellow urine. EBL: 500 mL with a total qualitative blood loss from time of delivery to completion of repair 1500 mL Fluids: Crystalloid per anesthesia Pathology: Placental fragments Complications: None apparent
[2022-09-21] MEDS: Docusate Sodium 100 MG CAP PO (21:29)
[2022-09-21] MEDS: oxyCODONE 5 mg/Acetaminophen 325 mg TAB PO (21:29)
[2022-09-21] MEDS: Ibuprofen 600 MG TAB PO (21:29)
[2022-09-22 00:30] VITALS: BP 115/73; PULSE 73; RESP 16; TEMP 36.4; O2SAT 99
[2022-09-22 04:30] VITALS: BP 110/65; PULSE 85; RESP 16; TEMP 36.3
[2022-09-22] MEDS: Lactated Ringers 1,000 ML 100 ML IV (05:17)
--- NOTE | 2022-09-22 05:45 | W.ANESPOSTOP ---
Postoperative Evaluation Date, Time and Location Date Performed: 09/22/22 Time Performed: 05:40 Patient Location: Obstetrics Vital Signs Most Recent Imported Vital Signs: Most Recent Vital Signs Temp Pulse Resp BP Pulse Ox 36.3 C L 85 16 110/65 99 09/22/22 04:30 09/22/22 04:30 09/22/22 04:30 09/22/22 04:30 09/22/22 00:30 Assessment Mental Status: Awake (Alert & Oriented to Patient Baseline) Airway and Respiratory Function: Patent airway with normal (patient baseline) respiratory exam Cardiovascular Function: Hemodynamically Stable Hydration Status: Adequately Hydrated Nausea & Vomiting: Active Nausea or Vomiting Present Nausea and Vomiting Management: Nausea and vomiting active, being managed as an inpatient (VSS, some dizziness associated with change in positions--labs pending) Pain: Pain is Moderate or Severe Postoperative Pain Management: Pain being addressed with medication Peripheral Nerve Block: Patient did not receive a nerve block
[2022-09-22 06:51] LABS: Abs Immature Grans 0.07 10^3/uL (0.0-0.06); Absolute Basophil Count 0.03 10^3/uL (0.0-0.2); Absolute Eosinophil Count 0.01 10^3/uL (0.0-0.7); Absolute Monocyte Count 1.01 10^3/uL (0.1-0.8); Basophils % 0.2; Eosinophils % 0.1; HCT 27.7 % (36.0-46.0); HGB 9.8 g/dL (11.2-15.7); Immature Grans % 0.5; Lymphocytes % 9.2; MCH 31.4 pg (27.0-33.0); MCHC 35.4 % (32.0-36.0); MCV 89 fL (80-95); MPV 10.2 fL (8.0-11.0); Monocytes % 7.2; Neutrophils % 82.8; Platelet Count 205 10^3/uL (130-400); RBC 3.12 10^6/uL (3.93-5.22); RDW 13.4 % (11.7-14.6); RDW-SD 43.4 fL; WBC 14.09 10^3/uL (4.4-10.8)
[2022-09-22 06:55] LABS: Absolute Neutrophil Count 11.67 10^3/uL (1.2-6.7)
[2022-09-22 07:45] VITALS: BP 108/61; PULSE 80; RESP 14; TEMP 36.6; O2SAT 95
[2022-09-22] MEDS: Acetaminophen 500 MG TAB PO ×3 (08:02→22:30)
[2022-09-22] MEDS: Docusate Sodium 100 MG CAP PO ×2 (08:02→16:30)
[2022-09-22] MEDS: Ibuprofen 600 MG TAB PO ×3 (08:02→22:30)
--- NOTE | 2022-09-22 10:58 | OBPPV_ITS ---
Date of service: 09/22/22 Time of Service: 10:58 Assessment and Plan Assessment and plan (1) Third degree laceration of perineum during delivery, : Status: Acute Assessment and plan: MD managing post-op care (2) Term delivered: Status: Acute Assessment and plan: A: PPD#1, s/p with 3rd degree lac Recovering from laceration & repair planned, pumping and pipette feeding P: Continue supports & monitoring RhoGam if indicated (3) Anemia, : Status: Acute Assessment and plan: Hgb this morning 9.8, Pt had reported dizziness last night but feeling better this morning Nolan and SCD's in place, pt remains resting in bed caring for Will repeat H&H as needed per MD Subjective Subjective Patient comments: Incisional pain (vaginal and perineal repair is sore), Tolerating diet and Flatus present Patient's Mood: tired, enjoying her baby [place] baby status: Doing well, Rooming in and Strong Bonding Observed feeding status: Exclusively breast feeding and Pipette Feeding Exam Physical Exam Vital signs: Temp Pulse Resp BP Pulse Ox 97.9 F 80 14 108/61 95 09/22/22 07:45 09/22/22 07:45 09/22/22 07:45 09/22/22 07:45 09/22/22 07:45 Vital Signs Reviewed: Yes Constitutional Constitutional: mild distress, average body habitus and cooperative HEENT Exam HEENT Exam: Normal Neck Exam Neck Exam: Normal Breast Exam Bilateral: Breast Exam: Normal and Soft Nipple Exam: Normal and Uninjured Respiratory Exam Respiratory Exam: Normal Cardiovascular Exam Cardiovascular Exam: Normal Abdominal Exam Abdomen: Other (soft, nontender) Fundal Exam Fundus: Below Umbilicus and Firm Rectal Exam Rectal Exam: Other (edematous from repair) Exam Perineum: Edematous and Repair Intact External: Present vulvar tenderness (nolan in place and draining clear yellow urine) Extremities Exam Extremity Exam: Normal (SCD's in place), Full ROM and Warm to Touch Back/Spine/Pelvis Exam Back Exam: Normal Skin Exam Skin Exam: Normal Neurological Exam Neurological Exam: Normal (pt sleepy, slurring words a bit, medicated) Psychiatric Exam Psychiatric Exam: Normal (processing experience) Results Hemoglobin/Hematocrit: Hgb 9.8 g/dL (11.2-15.7) L D 09/22/22 06:05 Hct 27.7 % (36.0-46.0) L 09/22/22 06:05 Abnormal Lab Findings: Abnormal Labs 09/22/22 06:05 WBC 14.09 H RBC 3.12 L Hgb 9.8 L D Hct 27.7 L Absolute Neutrophils 11.67 H Absolute Monocytes 1.01 H
[2022-09-22 16:30] VITALS: BP 112/74; PULSE 84; RESP 16; TEMP 36.7; O2SAT 99
--- NOTE | 2022-09-22 16:37 | W.PM.OBPNV1 ---
Date of service: 09/22/22 Time of Service: 16:37 Assessment and Plan Assessment and plan (1) Anemia, : Status: Acute (2) Term delivered: Status: Acute (3) Third degree laceration of perineum during delivery, : Status: Acute Subjective Subjective Narrative: Patient seen and examined. Overall doing well. Has fatigue. Had been having some nausea and little bit of dizziness when up and moving, most likely related to spinal, or acute blood loss, or combination thereof. Vital signs have been stable. Urine output has been good. Marsh catheter out today. Increase ambulation and activity Exam Physical Exam Vital signs: Temp Pulse Resp BP Pulse Ox 97.9 F 80 14 108/61 95 09/22/22 07:45 09/22/22 07:45 09/22/22 07:45 09/22/22 07:45 09/22/22 07:45 HEENT Exam HEENT Exam: Normal Neck Exam Neck Exam: Normal Respiratory Exam Respiratory Exam: Normal Cardiovascular Exam Cardiovascular Exam: Normal Abdominal Exam Abdomen: Tender Fundal Exam Fundus: Below Umbilicus and Firm Extremities Exam Extremity Exam: Normal; negative Calf Tenderness or Edema Neurological Exam Neurological Exam: Normal Psychiatric Exam Psychiatric Exam: Normal Results Hemoglobin/Hematocrit: Hgb 9.8 g/dL (11.2-15.7) L D 09/22/22 06:05 Hct 27.7 % (36.0-46.0) L 09/22/22 06:05 Abnormal Lab Findings: Abnormal Labs 09/22/22 06:05 WBC 14.09 H RBC 3.12 L Hgb 9.8 L D Hct 27.7 L Absolute Neutrophils 11.67 H Absolute Monocytes 1.01 H
[2022-09-23 01:25] VITALS: BP 116/69; PULSE 74; RESP 17; TEMP 36.4; O2SAT 98
--- NOTE | 2022-09-23 07:35 | OBPPV_ITS ---
Date of service: 09/23/22 Time of Service: 07:35 Assessment and Plan Assessment and plan (1) Term delivered: Status: Acute Assessment and plan: day #2 status post vaginal delivery. Patient had extensive vaginal and perineal laceration due to maternal expulsive forces. This was repaired in the operating room. She had a Marsh catheter in place for approximate 24 hours post repair and is now ambulatory, voiding without difficulty with good pain control taking oral pain medication. Her desires to be discharged home today. She does have asymptomatic anemia consistent with blood loss during delivery and from her extensive laceration. She will continue vitamins and iron supplementation. She will continue stool softeners as needed. (2) Third degree laceration of perineum during delivery, : Status: Acute (3) Anemia, : Status: Acute Assessment and plan: Continue vitamins and iron supplementation as needed (4) Rh negative state in antepartum period: Status: Acute Assessment and plan: Will receive RhoGAM today Subjective Subjective Interval history: Patient seen and examined this morning. Overall doing well. Better night of resting last night. Working on breast-feeding. Pain is well controlled using ibuprofen and Tylenol. Has been up and showered. Voiding appropriately. Vital signs are stable [place] baby status: Doing well, Rooming in and Strong Bonding Observed Narrative: Patient desires discharge home today if possible Exam Physical Exam Vital signs: Temp Pulse Resp BP Pulse Ox 97.5 F L 74 17 116/69 98 09/23/22 01:25 09/23/22 01:25 09/23/22 01:25 09/23/22 01:25 09/23/22 01:25 Vital Signs Reviewed: Yes Constitutional Constitutional: no acute distress and cooperative HEENT Exam HEENT Exam: Normal Neck Exam Neck Exam: Normal Respiratory Exam Respiratory Exam: Normal Cardiovascular Exam Cardiovascular Exam: Normal Abdominal Exam Comments: Soft, nontender Fundal Exam Fundus: Below Umbilicus and Firm Extremities Exam Extremity Exam: Normal and Edema (1+ bilateral); negative Calf Tenderness Skin Exam Skin Exam: Normal Psychiatric Exam Psychiatric Exam: Normal Results Hemoglobin/Hematocrit: Hgb 9.8 g/dL (11.2-15.7) L D 09/22/22 06:05 Hct 27.7 % (36.0-46.0) L 09/22/22 06:05 Abnormal Lab Findings: Abnormal Labs 09/22/22 06:05 WBC 14.09 H RBC 3.12 L Hgb 9.8 L D Hct 27.7 L Absolute Neutrophils 11.67 H Absolute Monocytes 1.01 H
--- NOTE | 2022-09-23 07:42 | W.PM.OBDISCH ---
Date of service: 09/23/22 Time of Service: 07:43 DS: Diagnosis Discharge Diagnosis (1) Term delivered: Status: Acute Asessment and Plan: day #2 status post vaginal delivery with subsequent significant vaginal, perineal, and vulvar laceration repaired in the OR (2) Third degree laceration of perineum during delivery, : Status: Acute Asessment and Plan: Stool softeners and pelvic rest (3) Anemia, : Status: Acute Asessment and Plan: Continue vitamins and iron supplementation (4) Rh negative state in antepartum period: Status: Acute Asessment and Plan: RhoGAM prior to discharge Discharge Plan Disposition Patient Disposition: Home Condition: Good Discharge Details Reason For Visit: PROM at Term Admit Date/Time: 09/21/22 02:39 Admit Provider: Elsy Islas Attending Provider: Elsy Islas Hospital Course Hospital Course: Patient had care managed by our midwifery service. She presented in early active labor and progressed to the point that she was completely dilated. She did receive antibiotics for group B strep prophylaxis. She delivered a viable female named Katelyn. At the time of delivery she had extensive vulvar, vaginal, and perineal lacerations that required repair in the operating room. Her total blood loss from time of delivery to the time of completion of repair was approximately 1500 cc. She did have an asymptomatic anemia without ongoing blood loss and discharge hemoglobin was 9.8. She was transitioned after her spinal anesthetic for her repair to oral pain medication, and at that point Marsh catheter was removed and she is voiding without difficulty. She will be discharged home day #2 ambulating, tolerating regular diet and oral pain medication and breast-feeding her daughter. She will be seen back in the office in approximately 1 week time. All instructions were given. Home Meds and New Rx's Prescriptions: New ibuprofen 800 mg tablet 800 mg PO Q8H PRNQty: 90 0RF docusate sodium [Colace] 100 mg capsule 100 mg PO BID Qty: 30 1RF No Action prenat.vits,fiona,oex-zphp-[id number] Tablet 1 tab PO DAILY Discharge Instructions Stand Alone Forms: BC Instructions, BC Post Vaginal Deliver Activity:: Pelvic rest x6 weeks Equipment/Supplies:: No Equipment Needed Diet:: As Tolerated Discharge Orders Discharge Orders: Discharge Order (Routine); Ordered 09/23/22 Ordered By: Stephanie Frye OB:DS Summary Summary Vaginal Delivery Method: Spontaneaous Contraception Discussed Contraception Discussed: No (Will address at 1 week visit. Pelvic rest for now.), [place] Gender-Baby A: Female weight: 8 lb 1.985 oz Status at Discharge Functional status at discharge: independent ambulation Overall status at discharge: patient is progressing back to baseline Mental Status: mental status grossly normal Speech and Movement: speech and movement normal Mood: congruent mood Affect: normal affect Exam Physical Exam Vital signs: Temp Pulse Resp BP Pulse Ox 97.5 F L 74 17 116/69 98 09/23/22 01:25 09/23/22 01:25 09/23/22 01:25 09/23/22 01:25 09/23/22 01:25 Narrative: See physical exam from progress note dated 09/23/2022 [facility] All Active Problems (Updated 09/22/22 @ 11:28 by Elsy Islas) Anemia, (Acute) Term delivered (Acute) Third degree laceration of perineum during delivery, (Acute) repaired in OR Heart murmur (Acute) Rh negative state in antepartum period (Acute) Cystic acne (Acute) (Acute) Medical History (Updated 09/22/22 @ 11:28 by Elsy Islas) Family history of heart murmur Group B Streptococcus carrier, +RV culture, currently No pertinent past medical history Positive test PROM (premature rupture of membranes) Surgical History No pertinent past surgical history Family History Sister Heart murmur Maternal Grandmother Arrhythmia pacemaker Paternal Grandfather Heart disease stints placed Paternal Grandmother Blood clot in vein Mother Hypertension Father Hyperlipidemia Social History Smoking/Tobacco Use Status: Never Second Hand Exposure: No Smoking risk assessment performed?: Yes Alcohol Intake: never Drug use: Never Do you feel safe at home: Yes Do you feel safe in your relationship?: Yes Female Reproductive History Menstrual control method: none History History 1 Para 0 Hx # Term Pregnancies 0 Multiple births 0 Hx # Pregnancies 0 Ectopic pregnancies 0 AB induced 0 Hx Number of Living Children 0 AB spontaneous 0 DS: Data Vitals/I&O Vitals and I&O: Vital Signs Temperature 97.5 F L 09/23/22 01:25 Temperature 98.3 F 09/21/22 07:06 Temperature Source Tympanic 09/23/22 01:25 Temperature Source Oral 09/21/22 20:30 Pulse 74 09/23/22 01:25 Pulse 100 09/21/22 07:06 Pulse Rhythm Regular 09/22/22 20:40 Respiratory Rate 17 09/23/22 01:25 Respiratory Depth Normal 09/21/22 02:39 Blood Pressure 116/69 09/23/22 01:25 Blood Pressure 123/78 09/21/22 07:06 Blood Pressure Mean 84 09/21/22 20:30 Pulse Oximetry 98 09/23/22 01:25 Oxygen Delivery Method Room Air 09/23/22 01:25 Oxygen Flow Rate 0 09/23/22 01:25 Pain Level 4 09/22/22 16:30 Intake & Output 09/22/22 09/22/22 09/23/22 11:59 23:59 11:59 Output Total 450 / 3950 3500 / 3950 950 / 950 Balance -450 / -3950 -3500 / -3950 -950 / -950 Output: Urine 350 / 3850 3500 / 3850 950 / 950 Emesis 100 / 100 Other: Urine Color Yellow Yellow Data Completed and Pending Labs on day of discharge: Labs from last 24 hours 09/23/22 09/21/22 07:28 06:30 Screen Pending Rhogam Unit Number Pending Unit Expiration Date Pending Product Lot # Pending
[2022-09-23 12:26] VITALS: BP 112/62; PULSE 81; RESP 14; TEMP 36.9; O2SAT 95
== END 2022-09-23 12:20 | disposition home or self-care (01) | DRG 768 ==
LOC: OBS 03:12 → BCD 08:59
PROVIDERS: Obstetrics & Gynecology; Admitting Provider Advanced Practice Midwife; Visit Provider Advanced Practice Midwife
PROC: 0DQP0ZZ Repair Rectum, Open Approach (ICD-10-PCS; CPT 57260; principal; 2022-09-21 16:50)
DX: O42.02 Full-term premature rupture of membranes, onset of labor within 24 hours of rupture (principal); Z37.0 Single live birth; O72.2 Delayed and secondary postpartum hemorrhage; O36.0930 Maternal care for other rhesus isoimmunization, third trimester, not applicable or unspecified; D62 Acute posthemorrhagic anemia; O70.20 Third degree perineal laceration during delivery, unspecified; Z3A.39 39 weeks gestation of pregnancy; O69.81X0 Labor and delivery complicated by cord around neck, without compression, not applicable or unspecified; O99.824 Streptococcus B carrier state complicating childbirth; O90.81 Anemia of the puerperium
CPT/HCPCS: 59300; 36415; 85027; 85461; 86850; 86900; 86901; 88305; 90384; 59025; 85025; 86870; J0690; J2371; J2405; J2540; J2790; J3010; J3490

== ENCOUNTER 2024-09-11 03:08 | Outpatient (CLI) | payer MEDICAID, SELFPAY ==
[2024-09-11 11:12] LABS: Abs Immature Grans 0.02 10^3/uL (0.0-0.06); Absolute Basophil Count 0.03 10^3/uL (0.0-0.2); Absolute Eosinophil Count 0.07 10^3/uL (0.0-0.7); Absolute Lymphocyte Count 1.58 10^3/uL (1.2-3.4); Basophils % 0.4 %; Eosinophils % 0.9 %; HCT 39.8 % (36.0-46.0); HGB 13.8 g/dL (11.2-15.7); Immature Grans % 0.2 %; Lymphocytes % 19.5 %; MCH 29.5 pg (27.0-33.0); MCHC 34.7 % (32.0-36.0); MCV 85 fL (80-95); MPV 9.3 fL (8.0-11.0); Monocytes % 4.9 %; Neutrophils % 74.1 %; Platelet Count 311 10^3/uL (130-400); RBC 4.68 10^6/uL (3.93-5.22); RDW 12.8 % (11.7-14.6); RDW-SD 39.7 fL
[2024-09-11 19:24] LABS: Hepatitis B Surface Ag Negative (Negative)
[2024-09-11 19:54] LABS: Hepatitis C Ab w Rflx HCV PCR Negative (Negative)
[2024-09-11 19:55] LABS: HIV-1/2 Ag & Ab Screen Negative (Negative)
[2024-09-12 10:10] LABS: Rubella IgG Ab (UVM) Positive (See Note)
[2024-09-12 10:12] LABS: Varicella IgG Antibody Positive (See Note)
[2024-09-13 20:03] LABS: Syphilis IgG w/Reflex Nonreactive (Nonreactive)
[2024-10-03 12:58] LABS: Result Summary NEGATIVE; Specimen WB Whole Blood
== END 2024-09-11 03:09 | disposition home or self-care (01) ==
LOC: LBO 03:08
PROVIDERS: Visit Provider Advanced Practice Midwife
DX: Z34.91 Encounter for supervision of normal pregnancy, unspecified, first trimester (principal)
CPT/HCPCS: 36415; 81220; 81222; 86787; 86803; 86850; 86900; 86901; 87340; 87389; 85025; 86762; 86780

== ENCOUNTER 2024-09-11 09:22 | Outpatient (REF) | payer MEDICAID, SELFPAY ==
--- NOTE | 2024-09-11 10:15 | PAPFT_PTH ---
PATIENT: Luis Redd LOC: [facility] U#:[id number] AGE/SX: 24/F ROOM: RE09/11/[address]: Dai Brown : 2000 BED: DIS: 09/11/2024 SPEC #: [id number] RECD: 09/11/24 13:01 STATUS: CUONG REQ #: [id number] AFTAB: 09/11/24 10:[address]: Dai Brown DEPT: [facility] Cytology RECD BY: Lissette Pascual ENTERED: 09/11/24 13:01 SP TYPE: PAPFT OTHR DR: Unknown,Unknown Tissues: 1 - CX/ENDOCX FOR PAP SMEARS Procedures: PAP THIN PREP/UVM Screening Comments: [id number]
[2024-09-12 11:38] LABS: Chlamydia Result Negative (Negative); GC Result Negative (Negative)
== END 2024-09-11 09:23 | disposition home or self-care (01) ==
LOC: LBN 09:22
PROVIDERS: Visit Provider Advanced Practice Midwife
DX: Z34.91 Encounter for supervision of normal pregnancy, unspecified, first trimester (principal); Z12.4 Encounter for screening for malignant neoplasm of cervix
CPT/HCPCS: 87491; 87591; 88142; 87086

== ENCOUNTER 2024-11-05 00:53 | Outpatient (CLI) | payer MEDICAID, SELFPAY ==
--- NOTE | 2024-11-05 06:30 | DI.US_ITS ---
Exam(s) US OB 2-3 TRIMESTER EXAM: US OB 2-3 TRIMESTER CLINICAL HISTORY: ,z34.90. TECHNIQUE: Transabdominal obstetrical ultrasound performed. COMPARISON: US POCUS EXAM from 09/11/2024 FINDINGS: Number of fetuses: 1 position: VARIABLE Placental location: ANTERIOR No evidence of previa. BIOMETRIC DATA: BPD: 5.1cm, 21weeks 3days HC: 19.32cm, 21weeks 4days AC: 18.13cm, 23weeks FL: 3.53cm, 21weeks 1day Cisterna magna: 4.2mm Cerebellum: 2.17cm Lateral ventricle: 6 mm EFW: 473.75g, 1lb 1.16oz, 97% Composite Age: 21weeks 6days MUSTAPHA: 03/12/2025 Heart Rate: 141bpm Amniotic fluid : Amount of fluid is visually within normal limits. ANATOMICAL SURVEY: Four-chambered heart: Unremarkable. LVOT: Unremarkable. RVOT: Unremarkable. Left-sided stomach: Unremarkable. urinary bladder: Unremarkable. Bilateral kidneys: Unremarkable. Three-vessel cord: Unremarkable. Cord insertion: Unremarkable. Posterior fossa:Unremarkable. ventricles: Unremarkable. nose: Unremarkable. lips: Unremarkable. palate: Unremarkable. spine: Unremarkable. Two arms and two legs: Unremarkable. IMPRESSION: 1. Single live intrauterine gestation with composite age measuring 21+ 6 weeks. 2. Normal anatomic survey. DATA REPOSITORY:
== END 2024-11-05 01:13 ==
LOC: DI 00:53
PROVIDERS: Visit Provider Advanced Practice Midwife
DX: Z34.92 Encounter for supervision of normal pregnancy, unspecified, second trimester (principal); Z3A.21 21 weeks gestation of pregnancy
CPT/HCPCS: 76805

== ENCOUNTER 2024-12-31 01:36 | Outpatient (CLI) | payer MEDICAID, SELFPAY ==
[2024-12-31 10:42] LABS: HCT 35.5 % (36.0-46.0); HGB 12.2 g/dL (11.2-15.7); MCH 30.4 pg (27.0-33.0); MCHC 34.4 % (32.0-36.0); MCV 89 fL (80-95); MPV 8.8 fL (8.0-11.0); Platelet Count 253 10^3/uL (130-400); RBC 4.01 10^6/uL (3.93-5.22); RDW 13.1 % (11.7-14.6); RDW-SD 42.5 fL; WBC 7.70 10^3/uL (4.4-10.8)
[2024-12-31 11:14] LABS: Glucose,1 Hr (Glucola) 118 mg/dL (80-140)
== END 2024-12-31 01:37 | disposition home or self-care (01) ==
LOC: LBO 01:36
PROVIDERS: Visit Provider Obstetrics & Gynecology
DX: O26.893 Other specified pregnancy related conditions, third trimester (principal); Z67.91 Unspecified blood type, Rh negative
CPT/HCPCS: 36415; 82950; 85027; 86850; 86900; 86901; 90384

== ENCOUNTER → 2025-01-28 00:51 | Outpatient (CLI) | payer MEDICAID, SELFPAY ==
--- NOTE | 2025-01-28 06:15 | DI.US_ITS ---
Exam(s) US OB LIZ WEIGHT EXAM: US OB LIZ WEIGHT CLINICAL HISTORY: growth,z34.90. TECHNIQUE: Transabdominal obstetrical ultrasound performed. COMPARISON: US US OB 2-3 TRIMESTER from 11/05/2024 FINDINGS: Number of fetuses: 1 position: CEPHALIC Placental location: There is a grade 1 anterior placenta. No evidence of previa. BIOMETRIC DATA: BPD: 8.31cm, 33weeks 3days HC: 30.95cm, 34weeks 4days AC: 28.98cm, 33weeks FL: 6.4cm, 33weeks EFW: 2,142.75g, 4lb 11.97oz, 84.9% Composite Age: 33weeks 4days MUSTAPHA: 03/14/2025 Heart Rate: 112bpm Amniotic fluid index: 16.86cm. The largest pocket is 8 cm. IMPRESSION: 1. Single live intrauterine gestation as above. 2. Estimated weight is 2143gms. This is the 85th percentile. 3. Amniotic fluid index is 17 cm. The largest pocket is 8 cm. DATA REPOSITORY:
== END ==
LOC: DI 00:51
PROVIDERS: Visit Provider Obstetrics & Gynecology
DX: Z34.93 Encounter for supervision of normal pregnancy, unspecified, third trimester (principal); Z3A.31 31 weeks gestation of pregnancy
CPT/HCPCS: 76816

== ENCOUNTER 2025-03-04 11:28 | Outpatient (REF) | payer MEDICAID, SELFPAY | END 2025-03-04 11:29 | disposition home or self-care (01) | LOC: LBN 11:28 | PROVIDERS: Visit Provider Obstetrics & Gynecology | DX: Z34.93 Encounter for supervision of normal pregnancy, unspecified, third trimester (principal) | CPT/HCPCS: 87081 ==

== ENCOUNTER 2025-03-19 23:26 | Inpatient (IN) | payer MEDICAID, SELFPAY ==
[2025-03-19] VITALS (13 sets, daily range): BP systolic 93–122; BP diastolic 52–80; PULSE 68–113; RESP 16; TEMP 36.7; O2SAT 97–98
[2025-03-19 23:50] LABS: Abs Immature Grans 0.06 10^3/uL (0.0-0.06); HCT 40.2 % (36.0-46.0); HGB 13.8 g/dL (11.2-15.7); Immature Grans % 0.5 %; MCH 30.0 pg (27.0-33.0); MCHC 34.3 % (32.0-36.0); MCV 87 fL (80-95); MPV 9.4 fL (8.0-11.0); Platelet Count 232 10^3/uL (130-400); RBC 4.60 10^6/uL (3.93-5.22); RDW 13.1 % (11.7-14.6); RDW-SD 41.6 fL; WBC 12.60 10^3/uL (4.4-10.8)
[2025-03-20] VITALS (319 sets, daily range): BP systolic 93–133; BP diastolic 46–72; PULSE 0–149; RESP 16; TEMP 36.2–37; BMI 31.6
[2025-03-20] MEDS: Lactated Ringers 1,000 ML 250 ML IV (00:07)
--- NOTE | 2025-03-20 00:52 | HPE_ITS ---
Date of service: 03/20/25 Time of Service: 00:53 Assessment and Plan Assessment and plan (1) : Status: Acute Assessment and plan: 25-year-old G2, P1 at 39 weeks. Early labor. Desires augmentation. Will begin Pitocin at 1 milliunits increase by 1 unit every 30 minutes. Patient has a history of previous hemorrhage, retained placental fragment and a complex third-degree and sulcus tear. This was all repaired in the surgical suite. She also received a transfusion postdelivery with her last . For this reason, we are on high alert. She has an IV. Anesthesia is aware of the complexities of her last delivery. (2) Normal labor: Status: Acute OB-HPI Labor/Delivery History of Present Illness Reason for Visit: labor Chief Complaint: Uterine Contractions; Other (Nausea and vomiting). MUSTAPHA Calculator Estimated Delivery Date Method Current WG Current Estimate 03/27/25 Ultrasound #1 39w 0d Other Estimates 03/14/25 LMP (Certain) 40w 6d Comments: Patient is a 25-year-old 2 para 1 at 39 weeks today. She was scheduled for induction later today due to complicated delivery with her last with retained placental fragment, and a complex vaginal laceration. She is hoping to avoid those things. She called this evening with nausea and vomiting. She was also having uterine activity. When she presented here she was noted to have contractions that are irregular every 2 to 8 minutes with a cervix that is 2 cm, 50%, -3 station. Patient has had some IV hydration. Her nausea is improved. She wishes to proceed with labor induction. Was benefits and alternatives were discussed. History of Present Expected Delivery Route/Plan - MD BISHOP - Domingo Redd ( 2nd baby together) Will learn gender at delivery Specific Issues/Plan 1. Prior vaginal with complex vaginal laceration, hemorrhage requiring transfusion due to laceration and retained placental fragments. 2. CF screen negative, Declines cfDNA and AFP 3. Cystic acne- improved 4. Rh neg, rhoGam @ 28 wk 5. heart murmur reported at initial OB visit and family history-Cardiology consult 05/2022- nml echo & EKG Informed Consent Informed Consent: Induction of Labor Review of Systems All systems reviewed & are unremarkable except as noted in HPI and below Eyes Eyes: Reports as per HPI and Reports system reviewed and no additional complaints, except as documented ENT Ears, Nose, Mouth, and Throat: Reports system reviewed and no additional complaints, except as documented and Reports as per HPI Cardiovascular Cardiovascular: Reports system reviewed and no additional complaints, except as documented, Denies chest pain and Denies irregular heart rhythm Respiratory Respiratory: Reports system reviewed and no additional complaints, except as documented, Denies chest congestion and Denies cough Gastrointestinal Gastrointestinal: Reports system reviewed and no additional complaints, except as documented Genitourinary Genitourinary: Reports system reviewed and no additional complaints, except as documented Neurologic Neurologic: Reports system reviewed and no additional complaints, except as documented PFSH All Active Problems (Updated 03/20/25 @ 00:58 by Stephanie Frye DO) Normal labor (Acute) Benign skin lesion of forehead (Acute) Rh negative state in antepartum period (Acute) (Acute) Delayed menses (Acute) Heart murmur (Acute) Cystic acne (Acute) Medical History Anemia, Third degree laceration of perineum during delivery, repaired in OR Group B Streptococcus carrier, +RV culture, currently Family history of heart murmur Surgical History No pertinent past surgical history Family History Sister Heart murmur Maternal Grandmother Arrhythmia pacemaker Paternal Grandfather Heart disease stints placed Paternal Grandmother Blood clot in vein leg vein Mother Hypertension Father Hyperlipidemia Social History Smoking/Tobacco Use Status: Never Second Hand Exposure: No Smoking risk assessment performed?: Yes Alcohol Intake: never Drug use: Never Household members: spouse and other Details: H-Domingo, D-Katelyn Number of Children: 1 Do you feel safe at home: Yes Do you feel safe in your relationship?: Yes Female Reproductive History Menstrual control method: none History History 2 Para 1 Hx # Term Pregnancies 1 Multiple births 0 Hx # Pregnancies 0 Ectopic pregnancies 0 AB induced 0 Hx Number of Living Children 1 AB spontaneous 0 Past Pregnancies Del. Date GA/Weeks # Preg Succ Route Wgt Sex Labor Lgth Anesth esia Location [facility] 09/21/22 39 No Yes vaginal 8 lb 1.98 oz Female 6 hours ALBERTO Parra third degree laceration hemorrhage transfusion Delivery Date: 09/21/22 Last Updated by: Elsy Islas unmedicated labor, Katleyn Salomon MD repair of 3rd degree & deep left sulcus tear in OR, spinal, retained placental fragments. EBL 1500, need for transfusion. Meds Allergies and Home Medications Allergies Allergy/AdvReac Type Severity Reaction Status Date / Time No Known Allergies Allergy Verified 03/17/25 09:46 Home Medications ?Medication ?Instructions ?Recorded ?Confirmed ?Type prenat.vits,fiona,jij-obaa-qrqku 1 tab PO DAILY 02/07/22 03/17/25 History Exam Physical Exam Vital signs: Temp Pulse Resp BP Pulse Ox 98.1 F 94 H 16 102/63 98 03/19/25 23:46 03/20/25 00:48 03/19/25 23:46 03/20/25 00:02 03/19/25 23:46 Vital Signs Reviewed: Yes Constitutional Constitutional: no acute distress Detailed Labor and Delivery Exam Dilation: 2 Effacement (%): 50 station: -2 Position: OA Cervix position: anterior Consistency: soft Martin Score: Cervical Points Exam 0 1 2 3 Dilation Closed 1-2cm 3-4 cm 5-6cm Effacement 0-30% 40-50% 60-70% 80% Consistency Firm Medium Soft Station -3 -2 -1,0 +1,+2 Position Posterior Mid Anterior MARTIN Score(Cervical Ripeness Score): 8 Amniotic Membrane Status: Intact Contraction Frequency(min): 2-8 Contraction Duration(sec): 60 Contraction Intensity: Mild/Moderate Fetus A Heart Rate Baseline: 150 Monitor Accelerations: Present Monitor Decelerations: None Variability: Moderate (6-25 BPM) Presentation: Cephalic Categories: Category I HEENT Exam HEENT Exam: Normal Neck Exam Neck Exam: Normal Respiratory Exam Respiratory Exam: Normal Cardiovascular Exam Cardiovascular Exam: Normal Exam Exam: Normal Back/Spine/Pelvis Exam Back Exam: Normal Results Abnormal Lab Findings: Abnormal Labs 03/19/25 23:40 WBC 12.60 H Absolute Neutrophils 11.47 H Absolute Lymphocytes 0.55 L Risk Assessment Risk for Shoulder Dystocia Historical/Initial OB: NEGATIVE FOR: Pelvic Abnormality, Pre- BMI>30, Previous Shoulder Dystocia or Previous Macrosomia Increased Risk?: No Date/Initial: JF 03/20/2025 Delivery Plan @ 36wks: [facility] Risk for Pre-Eclampsia Yes, if one or more: NEGATIVE FOR: Hx Pre-E/Gest HTN, Chronic HTN, Multiple Gestation, Pre-gestational DM, Renal Disease, Systemic Lupus or APA Syndrome Yes, if 2 or more: POSITIVE FOR: Mother/Sister w/ Pre-E (oldest sister); NEGATIVE FOR: Nulliparity, Age>= 35 yrs, >10yr btwn pregnancies, BMI>30, ethinicty or Previous IUGR Risk for Post- Hemorrhage Initial: NEGATIVE FOR: Multiple Gestation, Previous PPH, Known Clotting Deficiency, Grand Multiparity or Anticoagulation At Risk?: Yes Counseled re: Active Management: Yes Date/Initials: 03/20/2025 JF Risks Reviewed Risks Reviewed Upon Admission: Yes
--- NOTE | 2025-03-20 01:02 | W.OBNST ---
Date of service: 03/20/25 Time of Service: 01:02 NST Evaluation Reason for NST Reasons for Nonstress Test: OTHER, SEE COMMENT Reason for NST Other: rule/out labor and N/V/D Gestational Age Gestational Age in Weeks and Days: 38 Weeks and 6Days Test and Monitor Explained Test/Monitor Explained: Test Explained Vital Signs Blood Pressure: 122/70 Pulse: 97 Temperature: 98.1 F Weight: 190 lb Urine Results Urine Protein: Negative Urine Ketones: Positive Urine Glucose: Negative Urine Blood: Negative NST Information Date on Monitor: 03/19/25 Time on Monitor: 23:00 Contraction Frequency: 3 NST Evaluation Patient States Movement: Present FHR Baseline: 145 Variability: Moderate 6-25 bpm Accelerations: 15x15 Decelerations: None NST Results: Reactive Note Ultrasound Done: Presentation (Ultrasound to confirm presentation) Presentation Results: Cephalic spine to the maternal right placenta left, posterior Coding for Presentation w/NST: Completed Exam. NST Note NST Reviewed and Verified by: Stephanie Frye
[2025-03-20] MEDS: Oxytocin/Normal Saline 30 UNIT/500 ML BAG 1 UNITS IV (01:05)
[2025-03-20] MEDS: Lactated Ringers 1,000 ML 125 ML IV ×2 (03:18→18:17)
--- NOTE | 2025-03-20 07:52 | W.PM.OBNL1 ---
Date of service: 03/20/25 Time of Service: 07:52 Informed Consent Informed Consent: Induction of Labor Pelvic Exam Dilation: 3 Effacement (%): 50 station: -1 Cervix Position: mid Consistency: soft Fetus A Monitor: External (US) Heart Rate Baseline: 140 Presentation: Cephalic Variability: Moderate (6-25 BPM) Categories: Category I FHR Rhythm: Regular Accelerations: 15 X 15 Decelerations: Variable Assessment and Plan Assessment and plan (1) : Status: Acute Assessment and plan: 39 weeks today. Augmentation of labor Pitocin currently. Patient will want epidural eventually. Patient will ambulate this morning. Will consider epidural pre or post rupture. Patient has a significant risk for hemorrhage. IV is established. Active management in the second stage. Hemoglobin starting 13.8 (2) Normal labor: Status: Acute Objective Abnormal lab results 03/19/25 Range/Units 23:40 WBC 12.60 H (4.4-10.8) 10^3/uL Absolute Neutrophils 11.47 H (1.2-6.7) 10^3/uL Absolute Lymphocytes 0.55 L (1.2-3.4) 10^3/uL Temp Pulse Resp BP Pulse Ox 98.6 F 93 H 16 122/60 98 03/20/25 05:10 03/20/25 07:49 03/19/25 23:46 03/20/25 07:46 03/19/25 23:46 Laboratory Results WBC 12.60 10^3/uL (4.4-10.8) H 03/19/25 23:40 RBC 4.60 10^6/uL (3.93-5.22) 03/19/25 23:40 Hgb 13.8 g/dL (11.2-15.7) 03/19/25 23:40 Hct 40.2 % (36.0-46.0) 03/19/25 23:40 MCV 87 fL (80-95) 03/19/25 23:40 MCH 30.0 pg (27.0-33.0) 03/19/25 23:40 MCHC 34.3 % (32.0-36.0) 03/19/25 23:40 RDW 13.1 % (11.7-14.6) 03/19/25 23:40 Plt Count 232 10^3/uL (130-400) 03/19/25 23:40 MPV 9.4 fL (8.0-11.0) 03/19/25 23:40 Immature Gran % 0.5 % 03/19/25 23:40 Neutrophils % 91.0 % 03/19/25 23:40 Lymphocytes % 4.4 % 03/19/25 23:40 Monocytes % 3.7 % 03/19/25 23:40 Eosinophils % 0.2 % 03/19/25 23:40 Basophils % 0.2 % 03/19/25 23:40 Nucleated RBC % 0.0 % (0.0-0.3) 03/19/25 23:40 Absolute Neutrophils 11.47 10^3/uL (1.2-6.7) H 03/19/25 23:40 Absolute Lymphocytes 0.55 10^3/uL (1.2-3.4) L 03/19/25 23:40 Absolute Monocytes 0.47 10^3/uL (0.1-0.8) 03/19/25 23:40 Absolute Eosinophils 0.03 10^3/uL (0.0-0.7) 03/19/25 23:40 Absolute Basophils 0.03 10^3/uL (0.0-0.2) 03/19/25 23:40 ABO/Rh A Negative 03/19/25 23:40 Antibody Screen POSITIVE 03/19/25 23:40 Antibody Identification Anti-D 03/19/25 23:40 Subjective Interval history since last seen: Patient seen and examined this morning. Feeling her contractions were intensely. Pitocin is at 10 milliunits. Category 1 heart rate tracing. Contractions range from every 2 to Q 8 minutes. Good progress with her cervical exam, 3 cm, 50%, -1 station Results Hemoglobin/Hematocrit: Hgb 13.8 g/dL (11.2-15.7) 03/19/25 23:40 Hct 40.2 % (36.0-46.0) 03/19/25 23:40 Abnormal Lab Findings: Abnormal Labs 03/19/25 23:40 WBC 12.60 H Absolute Neutrophils 11.47 H Absolute Lymphocytes 0.55 L
[2025-03-20] MEDS: Lactated Ringers 250 ML 500 ML IV (11:15)
--- NOTE | 2025-03-20 11:32 | ANES.PREOP_ITS ---
General Info Date of Service Date Performed: 03/20/25 Height: 5 ft 5 in Weight: 86.183 kg Body Mass Index (BMI): 31.6 Meds Allergies and Home Medications Allergies Allergy/AdvReac Type Severity Reaction Status Date / Time No Known Allergies Allergy Verified 03/17/25 09:46 Home Medication ?Medication ?Instructions ?Recorded prenat.vits,fiona,[id number] 1 tab PO DAILY 02/07/22 Current Visit Medications: Current Medications Generic Name Dose Route Start Last Admin Trade Name Freq PRN Reason Stop Dose Admin Ephedrine Sulfate 5 mg 03/20/25 10:14 Ephedrine 50 Mg/Ml Vial IVP DIRECTED PRN Fentanyl/Ropivacaine 200 ml 03/20/25 10:30 Fentanyl/Ropivacaine 2 Mcg/Ml And 0.1% 200 Ml Cadd Cassette EP DIRECTED FRANK Ringer's Solution 1,000 mls @ 125 mls/hr 03/19/25 23:30 03/20/25 03:18 IV 125 mls/hr INFUSION FRANK Administration Oxytocin/Sodium Chloride 30 unit in 500 mls @ 1 mls/hr 03/20/25 01:00 03/20/25 06:43 Pitocin/Normal Saline IV 10 milliunits/min INFUSION FRANK 10 mls/hr Protocol Titration 1 MILLIUNITS/MIN Naloxone HCl 0 mg 03/20/25 10:14 Naloxone 0.4 Mg/Ml Vial IVP DIRECTED PRN Sodium Chloride 0 ml 03/19/25 23:24 Normal Saline Flush 10 Ml Syr IVP PRN PRN Sodium Chloride 0 ml 03/20/25 08:30 Normal Saline Flush 10 Ml Syr IVP BID FRANK Sodium Chloride 0 ml 03/19/25 23:24 Normal Saline 10 Ml Vial IJ DIRECTED PRN PFSH Active Problems Active Problems: Problem Status Onset Code Normal labor Acute O80, Z37.9 Benign skin lesion of forehead Acute L98.9 Rh negative state in antepartum period Acute O26.899, Z67.91 Acute Z34.90 Delayed menses Acute N91.0 Heart murmur Acute R01.1 Cystic acne Acute L70.0 Medical History Medical History Anemia, Third degree laceration of perineum during delivery, repaired in OR Group B Streptococcus carrier, +RV culture, currently Family history of heart murmur Surgical History Surgical History No pertinent past surgical history Tobacco Smoking/Tobacco Use Status: Never Second hand exposure: No Alcohol Alcohol Intake: never Substance Use Substance use: Never Prental History History 2 2 Para 1 Hx # Term Pregnancies 1 Multiple births 0 Hx # Pregnancies 0 Ectopic pregnancies 0 AB induced 0 Hx Number of Living Children 1 AB spontaneous 0 Past Pregnancies Del. Date GA/Weeks # Preg Succ Route Wgt Sex Labor Lgth Anesth esia Location Prov Complic 09/21/22 39 No Yes vaginal 3684.871 g Female 6 hours Carisa Easley CNM third degree laceration hemorrhage transfusion Delivery Date: 09/21/22 Last Updated by: Elsy Islas unmedicated labor, Katelyn Salomon MD repair of 3rd degree & deep left sulcus tear in OR, spinal, retained placental fragments. EBL 1500, need for transfusion. Vital Signs and Lab Results Vital Signs Most Recent Vital Signs in EMR: Most Recent Vital Signs Temp Pulse Resp BP Pulse Ox 36.6 C 80 16 100/58 L 98 03/20/25 07:45 03/20/25 11:31 03/20/25 07:45 03/20/25 11:31 03/19/25 23:46 Lab Results 03/19/25 23:40 Blood Type / Crossmatch: 2 Antibody Screen POSITIVE 03/19/25 Complete Blood Count: 2 WBC, (4.4-10.8) 12.60 10^3/uL H 03/19/25, 23:40 RBC, (3.93-5.22) 4.60 10^6/uL 03/19/25, 23:40 Hgb, (11.2-15.7) 13.8 g/dL 03/19/25, 23:40 Hct, (36.0-46.0) 40.2 % 03/19/25, 23:40 Plt Count, (130-400) 232 10^3/uL 03/19/25, 23:40 Imaging and Studies Imaging and Studies Study information below may be from another EMR and interpreted by another provider. Please see original notes in EMR for more complete details. EKG Summary: 08/12/2022: Exam: Resting ECG Reason for Exam: cardiac evaluation of murmur in woman Patient Location: O HR:87 bpm ECG Measurements Heart Rate 87 AXIS KS 143 P 34 QRSd 174 QRS 16 QT 352 T28 QTc 424 Conclusion Sinus rhythm...normal P axis, V-rate 50- 99 Normal Electrocardiogram Echocardiogram Summary: 06/03/2022: Conclusion Normal left ventricular wall thickness and chamber size. Estimated ejection fraction is 60 to 65%. Wall motion is normal Normal right ventricular size and systolic function Both atria are normal in size There is no structural or hemodynamically significant valvular disease Estimated right ventricular systolic pressure is 16 mmHg Anesthesia Assessment and Plan Anesthesia History Personal History: No History of Anesthesia Complications Family History: No Family History of Anesthesia Complications Exercise Tolerance Exercise Tolerance: Metabolic Equivalents>4 Pertinent Negatives Pertinent Negatives: No Symptoms of GERD, No Major Cardiovascular Symptoms or Complaints and No Major Pulmonary Symptoms or Complaints Cardiac & Pulmonary Exam Cardiac Exam: Normal S1/S2 Heart Sounds Pulmonary Exam: Clear Bilateral Breath Sounds Implantable Cardiac Device Does patient have a Pacemaker or an ICD?: No Airway Exam Known Difficult Airway: No Mallampati Class: 3 Mouth Opening: Normal (> 3cm) Thyromental Distance: Greater than 3 cm Neck Range of Motion: Full ROM Neck Circumference: Normal Teeth Condition: Normal Dentition ASA Classification ASA Score: ASA 2 Emergency Case?: No NPO Status NPO Status: Full Stomach Status Status: Confirmed Anesthesia Plan Resuscitation Status: Full Code Anesthesia Technique: Epidural Anesthesia Airway Planned: Natural Airway Monitors Used: Standard Monitors
--- NOTE | 2025-03-20 11:33 | W.ANESNEU ---
Epidural/Spinal Catheter Date Performed: 03/20/25 Procedure Start: 10:52 Procedure Stop: 11:10 Requesting Provider: Stephanie Frye Procedure Location: Obstetrics Reason Performed: Labor Epidural Standard Monitors Applied: ECG, Blood Pressure, SpO2 and See EMR for corresponding vital signs Patient Position: Sitting Sedation Given (Indicate Dose Given): No Sedation given Patient Mental Status: Awake Sterility: Hand Hygiene, Surgical Cap, Surgical Mask, Sterile Gloves and Sterile Drape/Sheet Procedure Location: L3-L4 Interspace Epidural Needle: Tuohy 18 Gauge Needle Length: 4 Inch Needle Approach: Midline Epidural Procedure: Skin Prepped, Sterile Drape Placed, 1% Lidocaine to skin and subcutaneous tissue with 25G needle, Tuohy Needle placed, Bone Contacted despite needle repositioning and KAMERON to Saline Used Catheter Placed?: Catheter Not Placed Paresthesia: None Ultrasound: Not Used Number of Attempts (See previous attempts in note section): 2 Procedure Tolerated: Complications Encountered and Patient did not tolerate well Procedure Outcome: Unsuccessful Procedure Comment:: First attempt, bone contacted during KAMERON advancement, subsequent needle redirection, patient voiced she felt faint and the procedure was aborted and she was lowered down to the bed. Vitals were obtained and a fluid bolus was administered. Patient request a second attempt, with a subsequent vagal response at attempted placement. Again, patient was lowered to the bed. Dr. Frye was notified, and in shared decision making with the patient and partner, it was decided to stop our current efforts for epidural placement and monitor labor progression. Of note, during consent process, patient voiced some concerns/fear of general anesthesia and a conversation was had with RN at [facility], patient, and partner to address their concerns. Performed By: Qi Lyle
--- NOTE | 2025-03-20 12:17 | W.PM.OBNL1 ---
Date of service: 03/20/25 Time of Service: 12:17 Informed Consent Informed Consent: Induction of Labor Pelvic Exam Dilation: 4 Effacement (%): 70 station: -1 Cervix Position: anterior Consistency: soft Contractions Contraction Frequency(min): 2-8 Contraction Duration(sec): 60 Intensity: Moderate Fetus A Heart Rate Baseline: 150 Presentation: Cephalic Variability: Moderate (6-25 BPM) Categories: Category I FHR Rhythm: Regular Accelerations: 15 X 15 Amniotic Membrane Status: Ruptured Rupture Method: Artifical Amniotic Fluid: Clear Amount: Moderate Date of Membrane Rupture: 03/20/25 Time of Membrane Rupture: 12:19 Assessment and Plan Assessment and plan (1) Normal labor: Status: Acute Assessment and plan: Continue Pitocin augmentation. Artificial rupture of membranes for clear fluid. Pain control as necessary. All questions answered. Anticipate vaginal . All are aware of the potential for hemorrhage. Objective Abnormal lab results 03/19/25 Range/Units 23:40 WBC 12.60 H (4.4-10.8) 10^3/uL Absolute Neutrophils 11.47 H (1.2-6.7) 10^3/uL Absolute Lymphocytes 0.55 L (1.2-3.4) 10^3/uL Temp Pulse Resp BP Pulse Ox 97.9 F 98 H 16 107/56 L 98 03/20/25 07:45 03/20/25 12:15 03/20/25 07:45 03/20/25 11:45 03/19/25 23:46 Laboratory Results WBC 12.60 10^3/uL (4.4-10.8) H 03/19/25 23:40 RBC 4.60 10^6/uL (3.93-5.22) 03/19/25 23:40 Hgb 13.8 g/dL (11.2-15.7) 03/19/25 23:40 Hct 40.2 % (36.0-46.0) 03/19/25 23:40 MCV 87 fL (80-95) 03/19/25 23:40 MCH 30.0 pg (27.0-33.0) 03/19/25 23:40 MCHC 34.3 % (32.0-36.0) 03/19/25 23:40 RDW 13.1 % (11.7-14.6) 03/19/25 23:40 Plt Count 232 10^3/uL (130-400) 03/19/25 23:40 MPV 9.4 fL (8.0-11.0) 03/19/25 23:40 Immature Gran % 0.5 % 03/19/25 23:40 Neutrophils % 91.0 % 03/19/25 23:40 Lymphocytes % 4.4 % 03/19/25 23:40 Monocytes % 3.7 % 03/19/25 23:40 Eosinophils % 0.2 % 03/19/25 23:40 Basophils % 0.2 % 03/19/25 23:40 Nucleated RBC % 0.0 % (0.0-0.3) 03/19/25 23:40 Absolute Neutrophils 11.47 10^3/uL (1.2-6.7) H 03/19/25 23:40 Absolute Lymphocytes 0.55 10^3/uL (1.2-3.4) L 03/19/25 23:40 Absolute Monocytes 0.47 10^3/uL (0.1-0.8) 03/19/25 23:40 Absolute Eosinophils 0.03 10^3/uL (0.0-0.7) 03/19/25 23:40 Absolute Basophils 0.03 10^3/uL (0.0-0.2) 03/19/25 23:40 ABO/Rh A Negative 03/19/25 23:40 Antibody Screen POSITIVE 03/19/25 23:40 Antibody Identification Anti-D 03/19/25 23:40 Subjective Interval history since last seen: Patient seen and examined. Previous attempt at epidural x 2 unsuccessful due to maternal intolerance and hypotension. Patient feeling well. Pitocin resumed after IV fluid bolus. Category 1 heart rate tracing. Consent obtained for artificial rupture of membranes. Results Hemoglobin/Hematocrit: Hgb 13.8 g/dL (11.2-15.7) 03/19/25 23:40 Hct 40.2 % (36.0-46.0) 03/19/25 23:40 Abnormal Lab Findings: Abnormal Labs 03/19/25 23:40 WBC 12.60 H Absolute Neutrophils 11.47 H Absolute Lymphocytes 0.55 L
--- NOTE | 2025-03-20 14:22 | W.PM.OBNL1 ---
Date of service: 03/20/25 Time of Service: 14:22 Informed Consent Informed Consent: Induction of Labor Pelvic Exam Dilation: 5 Effacement (%): 70 Cervix Position: mid Assessment and Plan Assessment and plan (1) Normal labor: Status: Acute Assessment and plan: Labor at 39 weeks with artificial rupture membranes for clear fluid. Pitocin augmentation of labor. Category 2 strip intermittently. Will continue resumption of Pitocin increase. Reassuring status currently. Continue close monitoring and observation. Anticipate vaginal . Objective Abnormal lab results 03/19/25 Range/Units 23:40 WBC 12.60 H (4.4-10.8) 10^3/uL Absolute Neutrophils 11.47 H (1.2-6.7) 10^3/uL Absolute Lymphocytes 0.55 L (1.2-3.4) 10^3/uL Temp Pulse Resp BP Pulse Ox 97.9 F 109 H 16 111/61 98 03/20/25 07:45 03/20/25 14:19 03/20/25 07:45 03/20/25 14:08 03/19/25 23:46 Laboratory Results WBC 12.60 10^3/uL (4.4-10.8) H 03/19/25 23:40 RBC 4.60 10^6/uL (3.93-5.22) 03/19/25 23:40 Hgb 13.8 g/dL (11.2-15.7) 03/19/25 23:40 Hct 40.2 % (36.0-46.0) 03/19/25 23:40 MCV 87 fL (80-95) 03/19/25 23:40 MCH 30.0 pg (27.0-33.0) 03/19/25 23:40 MCHC 34.3 % (32.0-36.0) 03/19/25 23:40 RDW 13.1 % (11.7-14.6) 03/19/25 23:40 Plt Count 232 10^3/uL (130-400) 03/19/25 23:40 MPV 9.4 fL (8.0-11.0) 03/19/25 23:40 Immature Gran % 0.5 % 03/19/25 23:40 Neutrophils % 91.0 % 03/19/25 23:40 Lymphocytes % 4.4 % 03/19/25 23:40 Monocytes % 3.7 % 03/19/25 23:40 Eosinophils % 0.2 % 03/19/25 23:40 Basophils % 0.2 % 03/19/25 23:40 Nucleated RBC % 0.0 % (0.0-0.3) 03/19/25 23:40 Absolute Neutrophils 11.47 10^3/uL (1.2-6.7) H 03/19/25 23:40 Absolute Lymphocytes 0.55 10^3/uL (1.2-3.4) L 03/19/25 23:40 Absolute Monocytes 0.47 10^3/uL (0.1-0.8) 03/19/25 23:40 Absolute Eosinophils 0.03 10^3/uL (0.0-0.7) 03/19/25 23:40 Absolute Basophils 0.03 10^3/uL (0.0-0.2) 03/19/25 23:40 ABO/Rh A Negative 03/19/25 23:40 Antibody Screen POSITIVE 03/19/25 23:40 Antibody Identification Anti-D 03/19/25 23:40 Subjective Interval history since last seen: Patient seen and examined. Doing well. Up on the CUB. Patient had 2 early decelerations with contractions. Pitocin was cut in half position changed. Baby returned with baseline to the 150s, moderate variability. Category 2 strip with close observation. Will resume increase of Pitocin. Cervical exam proves slight cervical change to 5 cm, 70%. Soft, -1 station. Results Hemoglobin/Hematocrit: Hgb 13.8 g/dL (11.2-15.7) 03/19/25 23:40 Hct 40.2 % (36.0-46.0) 03/19/25 23:40 Abnormal Lab Findings: Abnormal Labs 03/19/25 23:40 WBC 12.60 H Absolute Neutrophils 11.47 H Absolute Lymphocytes 0.55 L
--- NOTE | 2025-03-20 16:30 | W.PM.OBNL1 ---
Date of service: 03/20/25 Time of Service: 16:30 Informed Consent Informed Consent: Induction of Labor Pelvic Exam Dilation: 7 Effacement (%): 80 station: 0 Contractions Monitor Mode: External Contraction Frequency(min): 3-4 Contraction Duration(sec): 60 Intensity: Moderate/Strong Fetus A Monitor: External (US) Heart Rate Baseline: 150 Presentation: Cephalic Variability: Moderate (6-25 BPM) FHR Rhythm: Regular Accelerations: 15 X 15 Decelerations: Variable Assessment and Plan Assessment and plan (1) Normal labor: Status: Acute Assessment and plan: Labor with augmentation at Pitocin of 11 milliunits. Overall doing well. Good labor progress. Good pain tolerance of labor. Anticipate vaginal Objective Abnormal lab results 03/19/25 Range/Units 23:40 WBC 12.60 H (4.4-10.8) 10^3/uL Absolute Neutrophils 11.47 H (1.2-6.7) 10^3/uL Absolute Lymphocytes 0.55 L (1.2-3.4) 10^3/uL Temp Pulse Resp BP Pulse Ox 97.9 F 87 16 111/61 98 03/20/25 07:45 03/20/25 16:27 03/20/25 07:45 03/20/25 14:08 03/19/25 23:46 Laboratory Results WBC 12.60 10^3/uL (4.4-10.8) H 03/19/25 23:40 RBC 4.60 10^6/uL (3.93-5.22) 03/19/25 23:40 Hgb 13.8 g/dL (11.2-15.7) 03/19/25 23:40 Hct 40.2 % (36.0-46.0) 03/19/25 23:40 MCV 87 fL (80-95) 03/19/25 23:40 MCH 30.0 pg (27.0-33.0) 03/19/25 23:40 MCHC 34.3 % (32.0-36.0) 03/19/25 23:40 RDW 13.1 % (11.7-14.6) 03/19/25 23:40 Plt Count 232 10^3/uL (130-400) 03/19/25 23:40 MPV 9.4 fL (8.0-11.0) 03/19/25 23:40 Immature Gran % 0.5 % 03/19/25 23:40 Neutrophils % 91.0 % 03/19/25 23:40 Lymphocytes % 4.4 % 03/19/25 23:40 Monocytes % 3.7 % 03/19/25 23:40 Eosinophils % 0.2 % 03/19/25 23:40 Basophils % 0.2 % 03/19/25 23:40 Nucleated RBC % 0.0 % (0.0-0.3) 03/19/25 23:40 Absolute Neutrophils 11.47 10^3/uL (1.2-6.7) H 03/19/25 23:40 Absolute Lymphocytes 0.55 10^3/uL (1.2-3.4) L 03/19/25 23:40 Absolute Monocytes 0.47 10^3/uL (0.1-0.8) 03/19/25 23:40 Absolute Eosinophils 0.03 10^3/uL (0.0-0.7) 03/19/25 23:40 Absolute Basophils 0.03 10^3/uL (0.0-0.2) 03/19/25 23:40 ABO/Rh A Negative 03/19/25 23:40 Antibody Screen POSITIVE 03/19/25 23:40 Antibody Identification Anti-D 03/19/25 23:40 Subjective Interval history since last seen: Patient seen and examined. More uncomfortable with contractions. Pitocin is now at 11. Contractions Q 3 to 4 minutes. heart rate tracing heart tones 150, moderate variability, occasional early deceleration with contractions. Results Hemoglobin/Hematocrit: Hgb 13.8 g/dL (11.2-15.7) 03/19/25 23:40 Hct 40.2 % (36.0-46.0) 03/19/25 23:40 Abnormal Lab Findings: Abnormal Labs 03/19/25 23:40 WBC 12.60 H Absolute Neutrophils 11.47 H Absolute Lymphocytes 0.55 L
[2025-03-20] MEDS: Ondansetron 4 MG/2 ML VIAL IVP (18:40)
--- NOTE | 2025-03-20 20:40 | W.OBDELIVERY ---
Date of service: 03/20/25 Time of Service: 20:40 OB Labor/ Delivery Information Baby A Delivery Delivery Method: Spontaneaous Presentation: Cephalic Vertex Position: Right Occipital Posterior Cord Description-Baby A: 3 Vessels and Nuchal Cord (X 2, delivered through) Cord Description Comment: Along Quantitative Blood Loss: 150 Delivery Outcome: Liveborn Transferred: Remains with Mother Note: Patient presented last night with onset of nausea, vomiting, diarrhea, and contractions. At that point she was noted irregular contractions with a cervix that was dilated and favorable. She had previously been scheduled for induction, and in light of her labor status, she remained for delivery. She did have Pitocin augmentation of her labor and artificial rupture of membranes for clear fluid for less than 12 hours. Initial attempt at placement of an epidural was unsuccessful. She did use nitrous oxide for pain management during her labor. She became completely dilated and with excellent maternal effort after a second stage huddle, she delivered a vertex in the occiput posterior position. There was nuchal cord x 2 which was delivered through without difficulty. There is no evidence of shoulder dystocia. With good support of her perineum, she had a second-degree perineal laceration which was repaired in the usual fashion with 3-0 Vicryl Rapide. She was also noted to have a first-degree clitoral carbajal laceration which was hemostatic and needed no sutures. Her uterus is firm and below the umbilicus postdelivery. She received oxytocin for uterine tonicity. Qualitative blood loss was 150 cc. Delivery was of a viable male and bonding well in the recovery phase. With Apgars of 9 and 9. Both mom and baby are stable condition Providers Doctor: Stephanie Frye Nurse: Susie Islas Nurse: Rox Hamm Labor/Delivery Information Number of Babies in Womb: 1 Steroids Given: None Reason Steroids Not Administered: N/A Group Beta Strep: N/A Medication in Delivery: nitrous Shoulder Dystocia: No Stages of Labor ROM Baby A: 03/20/25 ROM Baby A: 12:19 ROM Total Time- Baby A: [id number] Infant Delivery Date-Baby A: 03/20/25 Infant Delivery Time-Baby A: 20:12 Placenta Delivery Date-Baby A: 03/20/25 Placenta Delivery Time-Baby A: 20:16 Labor-Stage 3 Duration: 4 minutes Placenta Cultured: No Placenta Status: Delivered Baby A Infant Gender: Male Gestational Status: Term (39-41.6 wks) Gestational Age in Weeks/Days: 39 Weeks and 0 Days
[2025-03-20] MEDS: Ibuprofen 600 MG TAB PO (20:50)
[2025-03-20] MEDS: Acetaminophen 325 MG TAB 650 MG PO (20:50)
[2025-03-20] MEDS: Hamamelis Leaf/Glycerin 100 EACH BOX PR (20:51)
[2025-03-20] MEDS: Dibucaine 1% 28 GM TUBE TP (20:51)
[2025-03-21] MEDS: Acetaminophen 325 MG TAB 650 MG PO ×2 (02:35→08:49)
[2025-03-21] MEDS: Ibuprofen 600 MG TAB PO ×2 (02:35→08:49)
[2025-03-21 06:40] LABS: Abs Immature Grans 0.08 10^3/uL (0.0-0.06); HCT 32.4 % (36.0-46.0); HGB 11.4 g/dL (11.2-15.7); Immature Grans % 0.6 %; MCH 31.2 pg (27.0-33.0); MCHC 35.2 % (32.0-36.0); MCV 89 fL (80-95); MPV 9.7 fL (8.0-11.0); Platelet Count 242 10^3/uL (130-400); RBC 3.65 10^6/uL (3.93-5.22); RDW 13.2 % (11.7-14.6); RDW-SD 42.8 fL; WBC 12.53 10^3/uL (4.4-10.8)
[2025-03-21 09:31] VITALS: BP 103/69; PULSE 83; RESP 16; TEMP 36.8
[2025-03-21] MEDS: RHO(D) Immune Globulin 1,500 UNIT Syringe 1500 UNIT IM (11:10)
--- NOTE | 2025-03-21 20:05 | W.PM.OBDISCH ---
Date of service: 03/21/25 Time of Service: 20:05 DS: Diagnosis Discharge Diagnosis (1) Normal labor: Status: Acute Discharge Plan Disposition Condition: Good Condition: Good Discharge Details Reason For Visit: Term Labor Induction Admit Date/Time: 03/19/25 23:26 Admit Provider: Stephanie Frye Attending Provider: Stephanie Frye Primary Care Provider: Unknown,Unknown Hospital Course Hospital Course: 25-year-old G2 now P2002 s/p 39 wk performed 03/20/2025 - Rh negative/ Rub immune/ VZV immune/ GBS negative - complicated by history of complex laceration at last delivery and hemorrhage requiring transfusion secondary to retained products, Rh- status - Intrapartum course uncomplicated - course uncomplicated - Meeting all milestones - Lochia appropriate - Breast-feeding without issue - Contraceptive planning: Declines; plans for natural family-planning - Last Pap smear 09/11/2024-negative cytology - depression counseling completed; patient advised to have low threshold for seeking immediate medical evaluation if concerns arise. Counseled on signs and symptoms - Patient was counseled on pelvic rest for 6 weeks - - - - - - - - - - - - - - - - - 03/21/2025 (Rox): Patient presented to labor and delivery on the evening of 03/19/2025 for concerns surrounding regular contractions. She was augmented with Pitocin and she was ruptured to clear fluid the afternoon of 03/20/2025. An epidural was attempted; however, it was unable to be successfully placed. Therefore, labor pain was managed mostly with nitrous oxide. She then ultimately underwent an uncomplicated vaginal delivery. A second-degree perineal laceration was repaired at the time of delivery. Her course was unremarkable. She desired discharge at 24 hours ; she declined circumcision of her baby boy. Today, she is found to be doing very well. She denies any concerns. She is meeting all milestones appropriately. Her bleeding is appropriate. We had an extensive discussion regarding contraceptive options, signs and symptoms of depression, importance of pelvic rest, and things to watch for in the period. These conversations were completed with the father the baby at bedside. All questions were answered to the patient satisfaction. She was discharged 24 hours with instructions for close follow-up. - - - - - - - - - - - - - - - - - Home Meds and New Rx's Prescriptions: New Dermoplast 20 % aerosol 1 applic topical TID-QID 5 Days Qty: 78 1RF docusate sodium [Colace] 100 mg capsule 100 mg PO BID PRN10 Days Qty: 20 0RF No Action prenat.vits,fiona,[id number] Tablet 1 tab PO DAILY Discharge Instructions Instructions: What to Watch for After You Have a Baby, Normal Bleeding After Having a Baby, Exercises, Taking Care of Yourself After You Have a Baby Additional Instructions: ? Eat a well-rounded diet ? Ambulate regularly and engage in light activity while avoiding repeated heavy lifting (over 10 pounds) ? Take your medications as prescribed ? Please be sure to attend your follow-up visits ? If you have an incision, be sure to keep it clean and dry using simple soap and water; avoid scrubbing to avoid damage to suture ? If you have been prescribed narcotics such as tramadol or oxycodone or [place], please note these medications have an addictive potential and should be used sparingly. Please discard of any leftover medication either with your local pharmacy or by flushing the medication. Do not share these medications with other individuals, and have a low threshold for seeking immediate medical evaluation if you experience any sleepiness, headaches, or any other concerns while using these medications. ? Please do not insert anything vaginally, including but not limited to, tampons, douching, or sexual intercourse, for a full 8 weeks and/or until you are medically cleared. ? If you have any concerns including fevers/chills, lightheadedness, visual changes, persistent headaches unresponsive to Tylenol, persistent nausea/vomiting, persistent abdominal pain, bruising and or leakage from your incision sites, excessive vaginal bleeding, or any other concerns, please have a low threshold for seeking immediate medical evaluation and/or reaching out to our clinic at [phone]. ? If you find yourself having crying spells you cannot explain, loss of appetite, persistent inability to sleep, lack of bonding with your baby, and/or general and persistent sadness, please feel free to reach out to our clinic immediately at [phone]. Stand Alone Forms: BC Instructions, BC Post Vaginal Deliver Activity:: Pelvic rest Activity:: Pelvic rest Equipment/Supplies:: No Equipment Needed Diet:: Normal Diet Discharge Data Discharge Physician: Amber Gramajo OB:DS Summary Summary Vaginal Delivery Method: Spontaneaous Episiotomy Description: None Laceration Description: Perineal and Other Laceration Extension: Second Degree Contraception Discussed Contraception Discussed: Yes, [place] Gender-Baby A: Male weight: 7 lb 13.399 oz Status at Discharge Functional status at discharge: independent ambulation Overall status at discharge: patient is progressing back to baseline Mental Status: mental status grossly normal Speech and Movement: speech and movement normal Mood: congruent mood Affect: normal affect Exam Physical Exam Vital signs: Temp Pulse Resp BP Pulse Ox 98.2 F 83 16 103/69 98 03/21/25 09:31 03/21/25 09:31 03/21/25 09:31 03/21/25 09:31 03/19/25 23:46 PFSH All Active Problems Normal spontaneous vaginal delivery (Acute) 03/20/2025?male [place] Normal labor (Acute) Benign skin lesion of forehead (Acute) Rh negative state in antepartum period (Acute) (Acute) Delayed menses (Acute) Heart murmur (Acute) Cystic acne (Acute) Medical History Anemia, Third degree laceration of perineum during delivery, repaired in OR Group B Streptococcus carrier, +RV culture, currently Family history of heart murmur Surgical History No pertinent past surgical history Family History Sister Heart murmur Maternal Grandmother Arrhythmia pacemaker Paternal Grandfather Heart disease stints placed Paternal Grandmother Blood clot in vein leg vein Mother Hypertension Father Hyperlipidemia Social History Smoking/Tobacco Use Status: Never Second Hand Exposure: No Smoking risk assessment performed?: Yes Alcohol Intake: never Drug use: Never Household members: spouse and other Details: [place] [address]-Katelyn Housing: house Number of Children: 1 Do you feel safe at home: Yes Do you feel safe in your relationship?: Yes Female Reproductive History Menstrual control method: none History History 2 Para 1 Hx # Term Pregnancies 1 Multiple births 0 Hx # Pregnancies 0 Ectopic pregnancies 0 AB induced 0 Hx Number of Living Children 1 AB spontaneous 0 Past Pregnancies Del. Date GA/Weeks # Preg Succ Route Wgt Sex Labor Lgth Anesthesia Location Prov Complic 09/21/22 39 No Yes vaginal 8 lb 1.98 oz Female 6 hours ALBERTO Parra third degree laceration hemorrhage transfusion Delivery Date: 09/21/22 Last Updated by: Elsy Islas unmedicated labor, Katelyn Salomon MD repair of 3rd degree & deep left sulcus tear in OR, spinal, retained placental fragments. EBL 1500, need for transfusion. DS: Data Vitals/I&O Vitals and I&O: Vital Signs Temperature 98.2 F 03/21/25 09:31 Temperature 98.1 F 03/20/25 01:03 Temperature Source Oral 03/21/25 09:31 Pulse 83 03/21/25 09:31 Pulse 97 03/20/25 01:03 Pulse Rhythm Regular 03/21/25 09:33 Respiratory Rate 16 03/21/25 09:31 Respiratory Depth Normal 03/21/25 09:33 Blood Pressure 103/69 03/21/25 09:31 Blood Pressure 122/70 03/20/25 01:03 Blood Pressure Mean 80 03/21/25 09:31 Pulse Oximetry 98 03/19/25 23:46 Oxygen Delivery Method Room Air 03/19/25 23:46 Oxygen Flow Rate 0 03/19/25 23:46 Pain Level 6 03/20/25 18:40 Intake & Output 03/20/25 03/21/25 03/21/25 23:59 11:59 23:59 Intake Total 86.082 / 1956.948 Output Total 430 / 430 1600 / 1600 Balance -343.918 / 1526.948 -1600 / -1600 Intake: IV 86.082 / 1956.948 Output: Urine 200 / 200 1600 / 1600 Blood 230 / 230 Other: Urine Color Yellow Yellow Data Completed and Pending Pending Labs at Discharge: 03/19/25 03/21/25 03/21/25 23:40 06:26 08:04 WBC 12.60 H 12.53 H RBC 4.60 3.65 L Hgb 13.8 11.4 D Hct 40.2 32.4 L MCV 87 89 MCH 30.0 31.2 MCHC 34.3 35.2 RDW 13.1 13.2 Plt Count 232 242 MPV 9.4 9.7 Immature Gran % 0.5 0.6 Neutrophils % 91.0 84.0 Lymphocytes % 4.4 8.9 Monocytes % 3.7 6.3 Eosinophils % 0.2 0.0 Basophils % 0.2 0.2 Nucleated RBC % 0.0 0.0 Absolute Neutrophils 11.47 H 10.53 H Absolute Lymphocytes 0.55 L 1.12 L Absolute Monocytes 0.47 0.79 Absolute Eosinophils 0.03 0.00 Absolute Basophils 0.03 0.03 ABO/Rh A Negative Antibody Screen POSITIVE Antibody Identification Anti-D Screen Negative Rhogam Unit Number [id number] Unit Expiration Date 06/24/25 Product Lot # [id number]
[2025-03-21] MEDS: Dibucaine 1% 28 GM TUBE TP (20:44)
[2025-03-21 21:57] VITALS: BP 121/68; PULSE 72; TEMP 37
== END 2025-03-21 21:30 | disposition home or self-care (01) | DRG 807 ==
LOC: BCD 03-21 08:38 → OBS 03-21 08:39
PROVIDERS: Admitting Provider Obstetrics & Gynecology; Visit Provider Obstetrics & Gynecology
DX: O26.893 Other specified pregnancy related conditions, third trimester (principal); Z37.0 Single live birth; Z67.91 Unspecified blood type, Rh negative; O70.1 Second degree perineal laceration during delivery; O99.72 Diseases of the skin and subcutaneous tissue complicating childbirth; Z3A.39 39 weeks gestation of pregnancy; L70.0 Acne vulgaris
CPT/HCPCS: 36415; 85461; 86850; 86900; 86901; 90384; 59025; 85025; 86870; J2405; J2790